=== PATIENT | female | born 1955 | race Caucasian/White ===

== ENCOUNTER 2025-06-09 12:28 | Outpatient (REF) | payer MEDICARE, SELFPAY ==
--- OUTSIDE RECORDS SUMMARY | 2025-06-09 18:10 | XMS_ITS ---
Author Organization [facility] Care Team Providers Care Lead Injection Mold Technician Name Role Phone Juan Daniel Helton Unavailable Unavailable Nila Delgado Unavailable Unavailable Анна Rausch Unavailable Unavailable Allergies and adverse reactions Code CodeSystem Substance Reaction Severity StartDate Concern Status 2670 RXNORM Codeine Nausea (code- 4 20767711, SNOMED CT) Moderate 12/03/2022 active Nitrostat Contact dermati tis (code- 06773434, SNOMED CT) Moderate 12/03/2022 active Care Team Name Role Address Phone Organization Dates Juan Daniel Helton PCP [address] [facility] [address], [place], [address], [place] (Office): : [facility] 12/03/2022 - 12/08/2022 Nila Delgado [address] [facility] [address], [place], [address], [place] (Office): : [facility] 12/03/2022 - 12/08/2022 Анна Rausch [address] [address], [place], [address], [place] (Office): [facility] 12/03/2022 - 12/08/2022 Mental Status Section Date Assessment Total Score Description 12/08/2022 BIMS 15 cognitively int act CAM 0 No delirium ind icated PHQ-9 01 minimal depress ion 12/07/2022 BIMS 15 cognitively int act CAM 0 No delirium ind icated PHQ-9 01 minimal depress ion Insurance Providers Problems Problem # Description Date of onset Resolved Date Code CodeSystem Concern Status 1 ACUTE RESPIRATORY FAILURE WITH HYPOXIA [address] active 2 ANOREXIA NERVOSA, UNSPECIFIED [address] active 3 CHRONIC OBSTRUCTIVE PULMONARY DISEASE WITH (ACUTE) EXACERBATION [address] active 4 OTHER LACK OF COORDINATION [address] active 5 PNEUMONIA, UNSPECIFIED ORGANISM [address] active 6 UNSPECIFIED PROTEIN-CALORIE MALNUTRITION [address] active 7 UNVACCINATED FOR COVID-[address] active Reason for Referral No Reasons for Referral Entered Social History Social History Observation Description Start Date End Date Code Code System Current Smoking Status Tobacco smoking consumption unknown 624866028 SNOMED CT Sex Assigned At Female 1955 29150-1 [facility] Gender Identity Sexual Orientation Vital Signs Code Code System Vitals Name Values and Units Timing Information 79410-9 [facility] O2 % BldC Oximetry Value=92.0 Units= % 12/08/2022 88693-1 LOINC Pain Level Value=0.0 12/08/2022 84071-0 LOINC Weight Value=80.6 Units=Lbs 11/18 9279-1 LOINC Respiratory Rate Value=18.0 Units=/m in 12/07/2022 8462-4 LOINC Blood Pressure-Diastolic Value=57 Un its=mmHg 12/07/2022 8480-6 LOINC Blood Pressure-Systolic Qeeni=839 Un its=mmHg 12/07/2022 8310-5 LOINC Body Temperature Value=97.9 Units= F 12/07/2022 8867-4 LOINC Heart rate Value=96.0 Units=/min 8302-2 LOINC Height Value=65.0 Units=Inches 12/03/2022
--- OUTSIDE RECORDS SUMMARY | 2025-06-09 18:10 | XMS_ITS | Clinical Summary ---
Author Organization [facility] [address] [facility] Address [address] [place] [address] Phone Care Team Providers Care Cadastral Engineer Name Role Phone Atif Desai MD Primary Care Provider Allergies Active Allergy Reactions Criticality Noted Date Comments Codeine Low 02/22/2025 Nitroglycerin 02/22/2025 Medications dicyclomine (BENTYL) 10 mg capsule Take 1 capsule (10 mg total) by mouth 4 (four) times a day if needed (abdominal pain or cramps). 40 capsule 05/25/2025 Active Active Problems Problem Noted Date Diagnosed Date Underweight (BMI < 18.5) 02/22/2025 Tobacco use disorder 02/22/2025 Encounters Date Type Department Care Team Description 05/25/2025 11:00 AM EDT Office Visit Adult Medicine [address] [phone] Atif Desai MD Elevated alkaline phosphatase level (Primary Dx); Underweight (BMI < 18.5); Tobacco use disorder; Need for hepatitis C screening test; Encounter for screening for HIV; Screening for lipid disorders; Encounter for screening for malignant neoplasm of colon; Encounter for osteoporosis screening in asymptomatic postmenopausal patient; Encounter for screening for malignant neoplasm of lung in current smoker with 30 pack year history or greater; Encounter for screening mammogram for breast cancer from Last 3 Months Surgical History Surgery Date Site/Laterality Comments CHEST TUBE INSERTION Medical History Medical History Date Comments Anorexia Pneumothorax Family History Medical History Relation Name Comments ALS Brother Alcohol abuse Father Cirrhosis Father Liver cancer Father Ovarian cancer Mother ALS Sister 2 ALS Sister 3 Relation Name Status Comments Brother Father Mother Sister 1 Sister 2 Sister 3 Social History Tobacco Use Types Packs/Day Years Used Date Smoking Tobacco: Every Day Cigarettes 1 55.8 Started: 1970 Passive Smoke Exposure: Never Smokeless Tobacco: Never Tobacco Cessation:Ready to Q uit: Not Asked; Counseling Given: Not Answered Alcohol Use Standard Drinks/Week Comments Not Currently 0 (1 standard drink = 0.6 oz pur e alcohol) Housing Instability Answer Date Recorde d Are you worried that in the next 2 months you may not have stable housing? No 05/25/2025 Food Access & Nutrition Answer Date Rec orded Do you have access to a vari ety of food including fruits and vegetables? Yes 05/25/2025 Health Literacy Answer Date Recorded How often do you need to hav e someone help you when you read instructions, pamphlets, or other written material from your doctor or pharmacy? Never 05/25/2025 Caregiver: How often do you need to have someone help you when you read instructions, pamphlets, or other written material from your doctor or pharmacy? Not on file 05/25/2025 Financial Risk Answer Date Recorded How hard is it for you to pa y for the very basics like food, housing, medical care, and air conditioning / heating? Not very hard 05/25/2025 Transportation Answer Date Recorded Has the lack of transportati on kept you from meetings, work, or from getting things needed for daily living? Patient declined 05/25/2025 Has the lack of transportati on kept you from medical appointments or from getting medications? Patient declined 05/25/2025 Social Isolation Answer Date Recorded How often do you feel lonely or isolated from th ose around you? Never 05/25/2025 Food Risk Answer Date Recorded Within the past 12 months we worried whether our food would run out before we got money to buy more. Never true 05/25/2025 Within the past 12 months th e food we bought just didn't last and we didn't have money to get more. Never true 05/25/2025 Dependent Care Answer Date Recorded Do you need help finding or paying for care for your loved ones. For example, child care coordinator or elderly care for an older adult? No 05/25/2025 Education Answer Date Recorded Do you think completing more education or training, like finishing a GED, going to college, or learning a trade, would be helpful for you? Patient declined 05/25/2025 Employment and Income Answer Date Recor ded During the last four weeks, have you been actively looking for work? No 05/25/2025 Living Situation Answer Date Recorded What is your living situation? Unrecognized valu e 05/25/2025 Comments No Sex and Gender Information Value Date Recorded Sex Assigned at Not on file Legal Sex Female 9:14 AM EDT Gender Identity Not on file Sexual Orientation Not on file Obstetrics History Last Filed Vital Signs Vital Sign Reading Time Taken Comments Blood Pressure 134/65 05/25/2025 11:17 AM EDT Pulse 105 05/25/2025 11:17 AM EDT Temperature 36.3 C (97.3 F) 05/25/2025 11:17 AM EDT Respiratory Rate 14 05/25/2025 11:17 AM EDT Oxygen Saturation 93% 05/25/2025 11:17 AM EDT Inhaled Oxygen Concentration - - Weight 39.3 kg (86 lb 9.6 oz) 05/25/2025 11:17 A M EDT Height 162.6 cm (5' 4 ) 05/25/2025 11:17 AM EDT Body Mass Index 14.86 05/25/2025 11:17 AM EDT Plan of Treatment Upcoming Encounters Date Type Department Care Team (Late st Contact Info) Description 06/22/2025 2:15 PM EST Clinical Support Lung Screening Program - [place] [address] [facility] [address] [place] [address] 06/22/2025 2:45 PM EST Appointment [facility] CT Scan [address] [place] [phone] 06/24/2025 1:00 PM EST Appointment Radiology Department - [address] [phone] 08/31/2025 11:30 AM EST Office Visit Adult Medicine East - [address] [phone] Atif Desai MD [address] [place] [address] 09/09/2025 11:15 AM EST Appointment Bone Density - [place] [place] [address] Health Maintenance Due Date Last Done Comments Breast Cancer Screening 1955 Colorectal Cancer Screening: Colonoscopy 1955 Cholesterol Screening (Lipid Panel) 02/22/2025 Hepatitis C Screening 02/22/2025 Lung Cancer Screening (Low D ose CT) 02/22/2025 Medicare Annual Wellness Visit 02/22/2025 Osteoporosis Screening (Bone Density Screening) 02/22/2025 Influenza Vaccine (#1) 2026 Postp oned from 04/19/2025 (Patient Refused) Falls Risk Assessment 05/25/2026 05/25/2025 Social Influencers of Health Screening 05/25/2026 05/25/2025 RSV Immunization Adult Patie nts (1 - 1-dose 75+ series) 2028 Depression Screening Completed 05/25/2025 COVID-19 Vaccine Discontinued DTaP,Tdap,and Td Vaccines Discontinued HIB Vaccines Aged Out No longer eligi ble based on patient's age to complete this topic HPV Vaccines Aged Out No longer eligi ble based on patient's age to complete this topic Hepatitis A Vaccines Aged Out No long er eligible based on patient's age to complete this topic Hepatitis B Vaccines Aged Out No long er eligible based on patient's age to complete this topic IPV Vaccines Aged Out No longer eligi ble based on patient's age to complete this topic MMR Vaccines Aged Out No longer eligi ble based on patient's age to complete this topic Meningococcal ACWY Vaccine Aged Out N o longer eligible based on patient's age to complete this topic Meningococcal B Vaccine Aged Out No l onger eligible based on patient's age to complete this topic Pneumococcal Vaccine: 50+ Years Discontinued RSV Immunization Patients Un claudette 20 months Aged Out No longer eligible b ased on patient's age to complete this topic Varicella Vaccines Aged Out No longer eligible based on patient's age to complete this topic Zoster Vaccines Discontinued Additional Health Concerns Infection Onset Date Last Indicated Enteropathogenic E. coli (EPEC) 02/25/2025 02/25/2025 Insurance MEDICARE Care Teams Cadastral Engineer Relationship Specialty Start Date End Date Atif Desai MD [address] [place] [address] PCP - General Internal Medicine 02/22/25
== END 2025-06-09 12:29 | disposition home or self-care (01) ==
LOC: HO.LAB 12:28
PROVIDERS: PCP Internal Medicine
DX: Z13.89 Encounter for screening for other disorder (principal)
CPT/HCPCS: 81003; 87086; 99202

== ENCOUNTER 2025-06-09 12:28 | Outpatient (AMB) | payer MEDICARE, SELFPAY ==
--- NOTE | 2025-06-09 12:35 | MHC.OFFWIV ---
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 Intake Note: Patient presents with severe left sided low back pain & urinary frequency since yesterday Allergies codeine (CODEINE) Allergy (Unknown, Unverified 06/09/25 12:44) UNKNOWN nitroglycerin (NITROGLYCERIN) Allergy (Unknown, Unverified 06/09/25 12:44) TACHYCARDIA Do you need a note to return to daycare/school/sports/work: No HPI HPI Comments History of Present Illness Details History - The patient is a 69-year-old female presenting with symptoms suggestive of a urinary tract infection. - The patient reports experiencing pain and discomfort, primarily in the left lower back region, which she associates with previous urinary tract infections. - She denies experiencing burning during urination, fever, or hematuria, but reports mild abdominal cramping. - The patient has no history of kidney stones. Review of Systems - Genitourinary: Reports lower back pain and mild abdominal cramping. Denies dysuria, fever, and hematuria. All systems reviewed and are unremarkable except as noted in HPI Physical Exam General: Cooperative, healthy appearing, comfortable, no acute distress and well developed Orientation: Patient oriented x3 Limitations: No limitations Head: Normal to inspection Ears: Hearing grossly normal bilaterally Face and sinus: Normal facial exam Neck: Normal visual inspection and Yes full ROM Respiratory: Normal respiratory effort and able to speak in complete sentences. Skin: No rashes or lesions noted Neuro: Patient oriented x3 Back/spine: Positive CVA tenderness on the left side Physical Exam Vital Signs: Last Vital Signs Temp 97.6 F 06/09/25 12:42 Pulse 77 06/09/25 12:42 BP 110/72 06/09/25 12:42 Pulse Ox 97 06/09/25 12:42 Oxygen Delivery Method Room Air 06/09/25 12:42 Results AMB Urinalysis, Automated UA Leukoctes 70 Abbi/uL Last Edit by Veronica Chester CMA on 06/09/25 12:53 UA Nitrite Negative Last Edit by Veronica Chester CMA on 06/09/25 12:53 UA Urobilinogen 1 mg/dL Last Edit by Veronica Chester CMA on 06/09/25 12:53 UA Protein 30 mg/dL Last Edit by Veronica Chester, FLEX on 06/09/25 12:53 UA pH 6.0 Last Edit by Veronica Chester, FLEX on 06/09/25 12:53 UA Blood 200 Bob/uL Last Edit by Veronica Chester, FLEX on 06/09/25 12:53 UA Specific [place] 1.030 Last Edit by Veronica Chester, FLEX on 06/09/25 12:53 UA Ketone Positive Last Edit by Veronica Chester, FLEX on 06/09/25 12:53 UA Bilirubin 0 mg/dL Last Edit by Veronica Chester, FLEX on 06/09/25 12:53 UA Glucose 0 mg/dL Last Edit by Veronica Chester, FLEX on 06/09/25 12:53 Results Reviewed Results Reviewed: Laboratory Last Values Urine pH (Auto) 6.0 06/09/25 12:52 Specific [place] (Auto) 1.030 06/09/25 12:52 Urine Protein (Auto) 30 mg/dL H* 06/09/25 12:52 Glucose (UA)(Auto) 0 mg/dL 06/09/25 12:52 Urine Ketones (Auto) Positive 06/09/25 12:52 Urine Blood (Auto) 200 Bob/uL H* 06/09/25 12:52 Urine Nitrite (Auto) Negative 06/09/25 12:52 Urine Bilirubin (Auto) 0 mg/dL 06/09/25 12:52 Urine Urobilinogen (Auto) 1 mg/dL 06/09/25 12:52 Leukocyte Esterase (Auto) 70 Abbi/uL H* 06/09/25 12:52 Assessment & Plan Assessment & Plan (1) UTI (urinary tract infection): Code(s): N39.0 - Urinary tract infection, site not specified Qualifiers: Urinary tract infection type: acute cystitis Hematuria presence: with hematuria Qualified Code(s): N30.01 - Acute cystitis with hematuria Plan: Plan - UA + leuks, neg nitrites, + blood - Initiate antibiotic therapy for suspected urinary tract infection. - Prescribe phenazopyridine for urinary tract pain relief, to be taken every eight hours as needed, with a maximum of six doses. - Advise the patient to seek emergency evaluation if pain worsens or does not improve with antibiotics, to rule out nephrolithiasis as + CVA. - Will send urine culture. Patient was informed and verbally consented to the use of an ambient scribe for clinic note documentation during this visit. Orders: Orders AMB Urinalysis Automated Today Deborah Reza PA-C Z13.9 - Encounter for screening, unspecified Urine Culture Today Mable Laws PA-C N39.0 - Urinary tract infection, site not specified Medications: New phenazopyridine 200 mg (2 x 100 mg) PO Q8H PRN 6 tabs 0RF Pain Mable Laws PA-C cefuroxime axetil 500 mg PO Q12H 10 tabs 0RF Mable Laws PA-C Coding Level of Care Code New Pt Level 3 (60690) Diagnoses Acute cystitis with hematuria N30.01 Urinary tract infection type: acute cystitis Hematuria presence: with hematuria
[2025-06-09 12:42] VITALS: BP 110/72; PULSE 77; TEMP 36.4; O2SAT 97
== END 2025-06-09 13:34 | disposition home or self-care (01) ==
PROVIDERS: PCP Internal Medicine; Visit Provider Physician Assistant
DX: Z13.9 Encounter for screening, unspecified (principal); N30.01 Acute cystitis with hematuria

== ENCOUNTER 2025-06-09 16:28 | Emergency (ER) | payer MEDICARE, SELFPAY ==
--- NOTE | 2025-06-09 | ECG_ITS ---
Test Reason : NEW ONSET AFIB Blood Pressure : */* mmHG Vent. Rate : 85 BPM Atrial Rate : 85 BPM P-R Int : 176 ms QRS Dur : 78 ms QT Int : 388 ms P-R-T Axes : 85 98 73 degrees QTcB Int : 461 ms Sinus rhythm with Premature supraventricular complexes Rightward axis Anterior infarct (cited on or before 15-Mar-2016) Abnormal ECG When compared with ECG of 15-Mar-2016 11:24, Premature supraventricular complexes are now Present Questionable change in initial forces of Lateral leads Referred By: Generic ED Physician Electronically Signed By: WEST HERNANDES MD
--- NOTE | ~2025-06-09 | CT_ITS ---
CLINICAL HISTORY: PAIN CT ABDOMEN AND PELVIS WITHOUT CONTRAST Comparison: None provided Findings: No basilar consolidation or pleural effusion. Tiny pericardial effusion. Mild left hydronephrosis secondary to a 3 mm calculus in the proximal left ureter, L4 level. 2 mm nonobstructing calculus in the left kidney. 3 mm nonobstructing calculus in the right kidney. Surface nodularity in the liver can be seen with cirrhotic morphology. Normal spleen size. Dystrophic calcifications in or adjacent to the head of the pancreas could be related to chronic pancreatitis. No peripancreatic edema or fluid collection. Mildly thickened adrenal glands can be seen with hyperplasia. 1.6 cm gallstone. Dense aortic and arterial calcifications. No AAA. No bowel obstruction, pneumoperitoneum, or pneumatosis. The appendix is identified. No acute appendicitis. Atrophic uterus. No significant urinary bladder wall thickening or perivesical edema. [id number] L4 compression deformity. Prominent superior endplate Schmorl's node in L1. IMPRESSION: 1. Mild left hydronephrosis secondary to a 3 mm calculus in the proximal left ureter. 2. Nonobstructing bilateral nephrolithiasis. 3. Cholelithiasis. 4. No obstructive or acute inflammatory changes in the gastrointestinal tract. 5. Age-indeterminate L4 compression fracture. This document has been electronically signed by: Debra Mccann DO on 06/09/2025 18:50:45
[2025-06-09 16:48] VITALS: BP 108/53; BP 120/44; PULSE 150; PULSE 94; RESP 22; TEMP 36.6; O2SAT 94; O2SAT 95; BMI 15.4
--- NOTE | 2025-06-09 17:14 | ED.GENADULT ---
HPI - General Adult General Chief complaint: Abdominal Pain Stated complaint: UTI Time Seen by Provider: 06/09/25 17:11 Source: patient, RN notes reviewed and old records reviewed Mode of arrival: EMS Limitations: no limitations History of Present Illness ED Provider: Savanna SAUCEDA narrative: 69-year-old female who denies any known past medical history presents for evaluation of left flank pain. She has had left flank pain starting this morning the pain radiates around to her left lower abdomen She went to a walk-in clinic and was told that she has a UTI and was given Pyridium and cefuroxime. She took 1 dose of each and her pain worsened so she presented to the ER. Per EMS, her heart rate was in the 140s to 150s and irregular. The patient reports that she has had an irregular heartbeat her entire life but has never been diagnosed with AFib she did get a new primary doctor last week the patient denies any chest pain, shortness of breath, palpitations per nursing notes, apparently the patient was given Cardizem 20 mg IV during EMS transport Related Data Previous Rx's ?Medication ?Instructions ?Recorded cefuroxime axetil 500 mg tablet 500 mg PO Q12H #10 tabs 06/09/25 oxycodone 5 mg tablet 2.5 mg (1/2 x 5 mg) PO Q8H PRN 06/09/25 pain (scale score 7-10) #5 tabs phenazopyridine 100 mg tablet 200 mg (2 x 100 mg) PO Q8H PRN 06/09/25 Pain #6 tabs tamsulosin 0.4 mg capsule 0.4 mg PO DAILY #7 caps 06/09/25 Allergies Allergy/AdvReac Type Severity Reaction Status Date / Time codeine (CODEINE) Allergy Unknown UNKNOWN Unverified 06/09/25 16:56 nitroglycerin (NITROGLYCERIN) Allergy Unknown TACHYCARDIA Unverified 06/09/25 16:56 Review of Systems Constitutional: Constitutional: Denies body ache(s), Denies chills and Denies fever(s) ENT: Denies vertigo and Denies dizziness Cardiovascular: Cardiovascular: Denies chest pain, Denies dyspnea and Denies dyspnea on exertion Respiratory: Respiratory: Denies cough, Denies dyspnea and Denies dyspnea on exertion Gastrointestinal: Gastrointestinal: Reports abdominal pain, Denies nausea and Denies vomiting Musculoskeletal: Musculoskeletal: Reports back pain Integumentary/Breasts: Skin/Breast: Denies rash Neurologic: Denies vertigo and Denies dizziness PMFSH Social History Social History Advance Directives: No Advance Directives Information Provided: Yes Do you have a plan to hurt others: No Plan Physical Exam ED Vital Signs: Vital Signs - 24 hr 06/09/25 16:48 06/09/25 18:08 06/09/25 19:25 Temperature 97.8 F 98.0 F Pulse Rate 94 88 78 Respiratory Rate 22 H 21 H 20 Blood Pressure 120/44 L 105/51 L 112/50 L Pulse Oximetry 95 95 94 Oxygen Delivery Method Room Air Room Air Room Air BMI result Body Mass Index 15.4 Const General: healthy appearing, comfortable, no acute distress, alert and awake Nutritional Appearance: well nourished Orientation/consciousness: patient oriented x3 HENMT Head: Yes normocephalic and Yes atraumatic Eyes Eyelids: Yes eyelids normal Conjunctivae: conjunctivae normal Sclerae: sclerae normal Corneas: corneas normal Pupils: Equal, round and reactive pupils present EOM: EOMs intact bilaterally Neck Neck: Yes full ROM Resp Effort & Inspection: normal respiratory effort, able to speak in complete sentences and not labored Cardio Rhythm: regular rhythm GI Other: positive CVA tenderness on the left Inspection: No distended Palpation (GI): Soft to palpation, not firm, Tenderness to palpation present (GI) in the LLQ, no guarding and not rigid Back/Spine/Pelvis Other: there is some tenderness to light palpation of the left thoracic and lumbar paraspinous region. No vertebral tenderness. Skin General skin exam: elasticity normal Neuro General: patient oriented x3 Cranial nerves: Yes Equal, round and reactive pupils present and Yes Bilaterally intact EOM present Cognition (Neuro): normal cognition Extrem Other: Moving all extremities well without any obvious deformities Course Reevaluation(s) Reevaluation #1: patient re-evaluated, she reports that her pain is a 1/10. Her CT scan does show a 3 millimeter obstructing calculus. I discussed this with her. We will discharge the patient with symptomatic care. We will give her tamsulosin to help facilitate passing of the stone. I did agree to give her a very short course of oxycodone for breakthrough pain. Return precautions were given specifically severe pain, inability to tolerate p.o., or fevers Time: 21:24 Medical Decision Making Medical Decision Making [facility] Narrative: 69-year-old female presents for evaluation of left flank pain. Her symptoms started this morning and became severe. She was given a dose of antibiotic and Pyridium just prior to arrival. She has a sinus arrhythmia on your ekg. she denies any chest pain, palpitations, her heart rate during my evaluation is 80s to about 100. She would have left lower abdominal tenderness and left flank pain positive CVA tenderness on exam. We will get a CT scan of the abdomen pelvis without contrast to evaluate for obstructive uropathy. Plan for labs to evaluate renal function and evaluate for a leukocytosis. We will also get a repeat urinalysis for culturing Differential Diagnosis Differential Diagnoses: The differential diagnosis associated with the presentation includes obstructive uropathy UTI Pyelonephritis AFib SVT AFib Lab Data [facility] Lab Attestation statement: I reviewed the patient's lab results. no leukocytosis or significant anemia. Electrolytes within normal limits, renal function with normal limits 06/09/25 18:06 06/09/25 18:06 Labs: Lab Results 06/09/25 06/09/25 Range/Units 18:06 20:02 WBC 7.3 (4.8-10.8) X10*3/uL RBC 4.50 (4.20-5.50) X10*6/uL Hgb 14.1 (12.0-16.0) g/dl Hct 41.9 (37.0-47.0) % MCV 93.1 (80.0-98.0) fL MCH 31.3 (27.0-33.0) pg MCHC 33.7 (31.0-35.0) g/dl RDW 13.2 (11.0-16.0) % Plt Count 130 L (160-400) X10*3/uL MPV 10.8 (9.4-12.3) fL Immature Gran % (Auto) 0.4 (0.0-0.4) % Neut % (Auto) 85.0 H (45-73) % Lymph % (Auto) 8.6 L (20-40) % [place] % (Auto) 5.5 (2-11) % Eos % (Auto) 0.1 (0-4) % Baso % (Auto) 0.4 (0-2) % Lymph # (Auto) 0.6 L (1.2-4.9) X10*3/uL [place] # (Auto) 0.4 (0.1-1.2) X10*3/uL Eos # (Auto) 0.0 (0.0-0.4) X10*3/uL Baso # (Auto) 0.0 (0.0-0.2) X10*3/uL Abs Immat Gran (auto) 0.03 (0.00-0.03) X10*3/uL Absolute Neuts (auto) 6.2 (2.0-8.3) x10*3/uL Absolute Nucleated RBC 0.000 (0.0-0.012) X10*3/uL Nucleated RBC % (auto) 0.0 (0.0-0.2) /100WBC Sodium 144 (135-145) mmol/L Potassium 3.7 (3.3-5.1) mmol/L Chloride 108 (96-108) mmol/L Carbon Dioxide 24 (22-29) mmol/L Anion Gap 16 (12-20) BUN 15 (9-16) mg/dL Creatinine 0.77 (0.5-1.4) mg/dL Estim Creat Clear Calc 43.1 Estimated GFR > 60 Random Glucose 140 H (60-115) mg/dL Calcium 9.4 (8.4-10.2) mg/dL Urine Color [place] A Urine Appearance Clear Urine pH 5.5 (5.0-9.0) Ur Specific [place] 1.010 (1.005-1.025) Urine Protein Trace (Neg-Trace) mg/dL Urine Glucose (UA) Negative (Negative) mg/dL Urine Ketones Negative (Negative) mg/dL Urine Blood Moderate (2+) H (Negative) Urine Nitrite Positive H (Negative) Ur Leukocyte Esterase Small (1+) H (Negative) Urine RBC 6-10 H (0-2) /HPF Urine WBC 0-5 (0-5) /HPF Ur Squamous Epith Cells 3-5 (0-2) /HPF Calcium Oxalate Crystal Present Urine Bacteria None Seen (None Seen) Hyaline Casts 0-2 (0-2) /LPF Independent Interpretation I performed an independent interpretation of an: CT Scan Interpretation: agree with Radiology interpretation Radiology Impression Discussion of test interpretation with radiology: I have reviewed the radiologist's reading. Radiologist Impression: Findings: No basilar consolidation or pleural effusion. Tiny pericardial effusion. Mild left hydronephrosis secondary to a 3 mm calculus in the proximal left ureter, L4 level. 2 mm nonobstructing calculus in the left kidney. 3 mm nonobstructing calculus in the right kidney. Surface nodularity in the liver can be seen with cirrhotic morphology. Normal spleen size. Dystrophic calcifications in or adjacent to the head of the pancreas could be related to chronic pancreatitis. No peripancreatic edema or fluid collection. Mildly thickened adrenal glands can be seen with hyperplasia. 1.6 cm gallstone. Dense aortic and arterial calcifications. No AAA. No bowel obstruction, pneumoperitoneum, or pneumatosis. The appendix is identified. No acute appendicitis. Atrophic uterus. No significant urinary bladder wall thickening or perivesical edema. Wbfl-[id number] L4 compression deformity. Prominent superior endplate Schmorl's node in L1. IMPRESSION: 1. Mild left hydronephrosis secondary to a 3 mm calculus in the proximal left ureter. 2. Nonobstructing bilateral nephrolithiasis. 3. Cholelithiasis. 4. No obstructive or acute inflammatory changes in the gastrointestinal tract. 5. Age-indeterminate L4 compression fracture. This document has been electronically signed by: Debra Mccann DO on 06/09/2025 18:50:45 Discharge Plan Discharge Clinical Impression: Obstructive uropathy Patient Disposition: Home, Self-Care Instructions: Kidney Stones (ED) Additional Instructions: your CT scan showed a 3 millimeter kidney stone in the left side which is contributing to your pain. Your EKG did show an irregular rhythm but it was not atrial fibrillation. Take Flomax daily for the next week or until your pain is completely gone. You may continue your antibiotic. Use ibuprofen or Tylenol for pain. You may use oxycodone for severe, breakthrough pain this may make you drowsy, do not drink alcohol or drive after taking it Prescriptions: New oxycodone 5 mg tablet 2.5 mg PO Q8H PRN (Reason: pain (scale score 7-10)) Qty: 5 0RF Rx Instructions: Partial Fill upon patient request. tamsulosin 0.4 mg capsule 0.4 mg PO DAILY Qty: 7 0RF No Action cefuroxime axetil 500 mg tablet 500 mg PO Q12H Qty: 10 0RF phenazopyridine 100 mg tablet 200 mg PO Q8H PRN (Reason: Pain) Qty: 6 0RF Print Language: Setswana
--- NOTE | 2025-06-09 17:50 | MHC.EDTECH ---
Delayed draw due to Pt in CT.
[2025-06-09 18:08] VITALS: BP 105/51; PULSE 88; RESP 21; O2SAT 95
[2025-06-09 18:10] LABS: MANUAL DIFF FLAG NO
[2025-06-09 18:23] LABS: Anion Gap 16 (12-20); Blood Urea Nitrogen 15 mg/dL (9-16); Calcium 9.4 mg/dL (8.4-10.2); Carbon Dioxide 24 mmol/L (22-29); Chloride 108 mmol/L (96-108); Creatinine Clr Calc Pharmacy 43.1; Estimated Glomerular Filt Rate > 60; Potassium 3.7 mmol/L (3.3-5.1); Sodium 144 mmol/L (135-145)
[2025-06-09 19:25] VITALS: BP 112/50; PULSE 78; RESP 20; TEMP 36.7; O2SAT 94
[2025-06-09 19:36] LABS: Hematocrit 41.9 % (37.0-47.0); Hemoglobin 14.1 g/dl (12.0-16.0); Imm Gran Abs Auto 0.03 X10*3/uL (0.00-0.03); Imm Gran Pct Auto 0.4 % (0.0-0.4); Lymphocytes Absolute Auto 0.6 X10*3/uL (1.2-4.9); Mean Corpuscular HGB Conc 33.7 g/dl (31.0-35.0); Mean Corpuscular Hemoglobin 31.3 pg (27.0-33.0); Mean Corpuscular Volume 93.1 fL (80.0-98.0); NRBC Abs Auto 0.000 X10*3/uL (0.0-0.012); NRBC Pct Auto 0.0 /100WBC (0.0-0.2); Platelet Count 130 X10*3/uL (160-400); Red Blood Count 4.50 X10*6/uL (4.20-5.50); White Blood Count 7.3 X10*3/uL (4.8-10.8)
--- NOTE | 2025-06-09 20:06 | PC.NURSE ---
pt ambulatory to bathroom with steady gait, urine sample obtained and sent to lab
[2025-06-09 20:10] LABS: Appearance Urine Clear; Glucose Urine UA Negative (Negative); PH 5.5 (5.0-9.0); Specific Gravity - Urine 1.010 (1.005-1.025); UMIC TRIGGER UACC YES
[2025-06-09 20:16] LABS: UACC Culture Trigger YES
[2025-06-09 21:39] VITALS: BP 106/56; PULSE 82; RESP 16; TEMP 36.6; O2SAT 95
[2025-06-09 21:41] VITALS: BP 106/56; PULSE 82; RESP 16; TEMP 36.6; O2SAT 95
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
== END 2025-06-09 22:03 | disposition home or self-care (01) ==
PROVIDERS: Physician Assistant; Emergency Provider Student in an Organized Health Care Education/Training Program; PCP Internal Medicine
DX: N13.9 Obstructive and reflux uropathy, unspecified (principal); N39.0 Urinary tract infection, site not specified; R10.A2 Flank pain, left side; I49.8 Other specified cardiac arrhythmias; R10.814 Left lower quadrant abdominal tenderness
CPT/HCPCS: 36415; 74176; 80048; 81001; 85025; 87086; 93005; 99284

== ENCOUNTER → 2025-06-09 16:50 | Outpatient (BNV) | payer MEDICARE, SELFPAY | PROVIDERS: Emergency Provider Student in an Organized Health Care Education/Training Program; PCP Internal Medicine; Visit Provider Internal Medicine Cardiovascular Disease | DX: I49.3 Ventricular premature depolarization (principal); I25.2 Old myocardial infarction | CPT/HCPCS: 93010 ==

== ENCOUNTER → 2025-06-09 17:41 | Outpatient (BNV) | payer MEDICARE, SELFPAY | PROVIDERS: Emergency Provider Student in an Organized Health Care Education/Training Program; PCP Internal Medicine; Visit Provider Radiology Diagnostic Radiology | DX: N13.2 Hydronephrosis with renal and ureteral calculous obstruction (principal); K80.20 Calculus of gallbladder without cholecystitis without obstruction | CPT/HCPCS: 74176 ==

== ENCOUNTER 2025-06-11 07:13 | Inpatient (IN) | payer MEDICARE, SELFPAY ==
[2025-06-11] VITALS (11 sets, daily range): BP systolic 95–128; BP diastolic 40–74; PULSE 99–130; RESP 16–21; TEMP 36.2–36.8; O2SAT 85–99; BMI 14.9; BMI 16.1
--- NOTE | 2025-06-11 | ECG_ITS ---
Test Reason : ?afib Blood Pressure : */* mmHG Vent. Rate : 114 BPM Atrial Rate : 114 BPM P-R Int : 168 ms QRS Dur : 78 ms QT Int : 326 ms P-R-T Axes : 81 98 66 degrees QTcB Int : 449 ms Sinus tachycardia with Premature supraventricular complexes Rightward axis Borderline ECG When compared with ECG of 11-Jun-2025 08:24, Premature supraventricular complexes are now Present Nonspecific T wave abnormality now evident in Inferior leads Referred By: Nico Jj Electronically Signed By: WEST HERNANDES MD
--- NOTE | ~2025-06-11 | FL_ITS ---
EXAMINATION: FL GUIDANCE ONLY HISTORY: left stone COMPARISON: Correlation is made with a CT of the abdomen and pelvis without contrast dated 06/09/2025. TECHNIQUE: Fluoroscopy time: 19.5 seconds. Cumulative Dose: 2.7335 mGy. DAP: 1.1890 Gycm2 Images: 8. FINDINGS: Fluoroscopic spot films of the left abdomen demonstrate injection of the left ureter which is normal in caliber. A filling defect is seen at the UPJ consistent with the calculus noted on CT. The final images demonstrate placement of a nephroureteral stent. FL/FL guidance in OR IMPRESSION: Fluoroscopy during procedure. Please see procedure report for additional information. Electronically signed by: Trenton Valle MD 06/15/2025 07:07 AM EDT
--- NOTE | ~2025-06-11 | CT_ITS ---
EXAMINATION: CT CHEST WITHOUT CONTRAST CLINICAL INFORMATION: Hypoxia, abnormal x-ray COMPARISON: Same-day x-ray TECHNIQUE: Multidetector volumetric CT imaging of the chest was done. Axial MIP volume rendering provided. Sagittal and coronal reformatted images were obtained. This CT examination was performed using dose optimization techniques as appropriate, variously including the following: *Automated exposure control *Adjustment of mA and/or kV according to patient size (this includes techniques or standardized protocols for targeted exams where dose is matched to indication/reason for exam; i.e. extremities or head) *Use of iterative reconstruction technique FINDINGS: LUNGS: There is moderate to severe centrilobular and paraseptal emphysema, most advanced in the lung apexes. Focal linear and triangular density in the inferior lingula is likely atelectasis and/or scarring. There is groundglass and reticular density in the posterior segment left lower lobe at the base likely representing dependent atelectasis. MEDIASTINUM: The mediastinum is normal. CORONARY ARTERY CALCIFICATION: Present PLEURA: There is a right apical density projecting into the adipose tissues cephalad to the lung that measures 4.6 x 1.8 x 3.3 cm (transverse by CC by AP). It measures between 12-20 Hounsfield units. There is focal calcification along the anteromedial margin. It demonstrates a spiculated and angular margins at the interface with the right lung apex. Small layering pleural effusions are present bilaterally. There is focal thickening of along the superior right major fissure. AXILLA: No lymphadenopathy. UPPER ABDOMEN: There is a calcific stone in the gallbladder. There is a 2 mm stone in the mid left kidney. OSSEOUS STRUCTURES: There is diffuse osteopenia with compression fractures involving inferior T11, T12 and L1. CT/CT chest wo IV con IMPRESSION: There is an irregular area of pleural thickening in the right apex measuring up to 1.8 cm thick. It demonstrates heterogeneous low density with spiculated margins. While this could represent loculated fluid or benign pleural thickening, a more aggressive etiology is not excluded given the overall thickness, invagination into apical fat, and spiculations in the adjacent lung. Moderate emphysema. Small layering bilateral pleural effusions. Cholelithiasis. Nephrolithiasis: There is a 2 mm nonobstructing stone in the left kidney. Osteopenia with age-indeterminate compression fractures at the thoracolumbar junction. Fleischner guidelines were followed. Electronically signed by: Memo Eid MD 06/11/2025 12:36 PM EDT RP
--- NOTE | ~2025-06-11 | XR_ITS ---
EXAMINATION: XR CHEST CLINICAL INFORMATION: hypoxia COMPARISON: None available. TECHNIQUE: Frontal view of the chest was obtained. FINDINGS: Devices/Tubes/Lines: Multiple EKG leads overlie the patient Lungs: Hyperinflated lungs. No focal consolidation. Pleura: Opacification over the right lung apex and obliteration of the right costophrenic angle could represent loculated pleural effusion and/or pleural thickening. No pneumothorax. Heart/Mediastinum: Cardiomediastinal silhouette is within normal limits. Bones: Chronic appearing compression fracture deformity of the lower thoracic vertebral body, most likely T11. XR/XR chest 1V IMPRESSION: 1. Opacification over the right lung apex and obliteration of the right costophrenic angle could represent loculated pleural effusion and/or pleural thickening. 2. No consolidations in the remainder lungs. Electronically signed by: Abby Borden MD 06/11/2025 11:38 AM EDT
--- NOTE | ~2025-06-11 | CT_ITS ---
EXAMINATION: CT ABDOMEN PELVIS WITHOUT IV CONTRAST HISTORY: known UTI/stone L ureter now with sepsis/pain COMPARISON: Radius CT of the abdomen and pelvis most recent June 09, 2025 TECHNIQUE: CT scan of the abdomen and pelvis was performed without contrast using standard departmental protocol. Coronal and sagittal reformatted images were generated and reviewed. This CT exam was performed with one or more of the following dose reduction techniques: automated exposure control, adjustment of the mA and/or kV according to patient size, use of iterative reconstruction technique. DLP: 235 mGy-cm FINDINGS: LOWER CHEST: The visualized lung bases are clear. There is no pleural effusion. CARDIOVASCULATURE: The heart is normal in size. There is no pericardial effusion. LIVER: There are cirrhotic changes of the liver. No focal lesion. GALLBLADDER / BILE DUCTS: Gallstone measuring up to 1.8 cm. Gallbladder otherwise normal. No biliary duct dilatation. SPLEEN: The spleen is normal in size and has an unremarkable unenhanced appearance. PANCREAS: Calcifications in the head of the pancreas probably from chronic pancreatitis. Pancreas otherwise unremarkable. ADRENAL GLANDS: Left adrenal gland thickening unchanged. No nodule. Normal right adrenal gland. KIDNEYS/RETROPERITONEUM: 4 mm stone in the central right kidney probably representing a stone in the right renal pelvis. No right hydronephrosis. Mild left hydronephrosis and proximal ureteral dilatation from a 3 mm left proximal ureteral stone. This does not appear appreciably changed from recent exam. Small 2 mm stone in the mid left kidney.. LYMPH NODES: No retroperitoneal lymphadenopathy is identified in the abdomen or pelvis. VASCULATURE: Atherosclerotic disease. No aneurysm. Varices. Likely a recanalized paraumbilical vein. This appears partially calcified. MESENTERY/PERITONEUM: No free fluid. No masses. There is no free intraperitoneal gas. STOMACH: Underdistended and not well evaluated. SMALL BOWEL: The small bowel is normal in caliber. COLON: The colon is unremarkable. APPENDIX: Normal. URINARY BLADDER/PELVIC ORGANS: The urinary bladder is unremarkable. Uterus and adnexa are unremarkable. No pelvic mass. BONES / SOFT TISSUES: 2 x 4 cm partially low attenuation subcutaneous lesion in the right inferior buttock probably representing a sebaceous cyst or epidermoid. There is inferior soft tissue calcification. This appears unchanged. Osteopenia. Loss of height of multiple vertebral bodies, the L4 L3 L1 and L2 vertebral bodies questionable for mild compression fractures versus Schmorl's nodes. This appears unchanged. 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 CT/CT abdomen pelvis wo IV con IMPRESSION: Mild left hydronephrosis and proximal ureteral dilatation from a 3 mm left ureteral stone. This does not appear appreciably changed from June 09, 2025 exam. Small left renal stone. 4 mm central right renal stone probably in the right renal pelvis. No right hydronephrosis. Other stable findings of cirrhosis, varices, gallstone and changes from chronic pancreatitis. Electronically signed by: Demi Dean MD 06/11/2025 09:08 AM EDT
--- NOTE | 2025-06-11 07:31 | PC.NURSE ---
69 F here for kidney stone pain L abdomen, was seen here 2 days ago, pain now 10/10 and nausea since yesterday. Pt is A+OX4, anxious, cooperative. RR even and unlabored, denies CP or SOB.
[2025-06-11 07:49] LABS: MANUAL DIFF FLAG NO
--- NOTE | 2025-06-11 07:52 | ECG_ITS ---
Test Reason : check qtc Blood Pressure : */* mmHG Vent. Rate : 97 BPM Atrial Rate : 97 BPM P-R Int : 184 ms QRS Dur : 74 ms QT Int : 364 ms P-R-T Axes : 88 95 68 degrees QTcB Int : 462 ms Normal sinus rhythm with sinus arrhythmia Right atrial enlargement Rightward axis Anterior infarct (cited on or before 15-Mar-2016) Abnormal ECG When compared with ECG of 09-Jun-2025 16:50, Premature supraventricular complexes are no longer Present Referred By: Shyla Comer Electronically Signed By: WEST HERNANDES MD
[2025-06-11] MEDS: LACTATED RINGERS 1179 ML IV (07:58)
[2025-06-11 07:59] LABS: Hematocrit 39.4 % (37.0-47.0); Hemoglobin 13.1 g/dl (12.0-16.0); Imm Gran Abs Auto 0.05 X10*3/uL (0.00-0.03); Imm Gran Pct Auto 0.6 % (0.0-0.4); Lymphocytes Absolute Auto 0.7 X10*3/uL (1.2-4.9); Mean Corpuscular HGB Conc 33.2 g/dl (31.0-35.0); Mean Corpuscular Hemoglobin 31.0 pg (27.0-33.0); Mean Corpuscular Volume 93.1 fL (80.0-98.0); NRBC Abs Auto 0.000 X10*3/uL (0.0-0.012); NRBC Pct Auto 0.0 /100WBC (0.0-0.2); Platelet Count 118 X10*3/uL (160-400); Red Blood Count 4.23 X10*6/uL (4.20-5.50); White Blood Count 8.0 X10*3/uL (4.8-10.8)
--- OUTSIDE RECORDS SUMMARY | 2025-06-11 08:04 | XMS_ITS ---
Author Organization [facility] Care Team Providers Care Costume Design Teacher Name Role Phone Juan Daniel Helton Unavailable Unavailable Nila Delgado Unavailable Unavailable Анна Rausch Unavailable Unavailable Allergies and adverse reactions Code CodeSystem Substance Reaction Severity StartDate Concern Status 2670 RXNORM Codeine Nausea (code- 4 39953712, SNOMED CT) Moderate 12/03/2022 active Nitrostat Contact dermati tis (code- 00298741, SNOMED CT) Moderate 12/03/2022 active Care Team Name Role Address Phone Organization Dates Juan Daniel Helton PCP [address] [facility] [address], [place], [address], [place] (Office): : [facility] 12/03/2022 - 12/08/2022 Nila Delgado [address] [facility] [address], [place], [address], [place]Office): : [facility] 12/03/2022 - 12/08/2022 Анна Rausch [address] [facility] [address], [place], [address], [place] (Office): [facility] 12/03/2022 - 12/08/2022 Mental Status Section Date [...] 1 ACUTE RESPIRATORY FAILURE WITH HYPOXIA [address] active 2 ANOREXIA NERVOSA, UNSPECIFIED [address] active 3 CHRONIC OBSTRUCTIVE PULMONARY DISEASE WITH (ACUTE) EXACERBATION [address] active 4 OTHER LACK OF COORDINATION [address] active 5 PNEUMONIA, UNSPECIFIED ORGANISM [address] active 6 UNSPECIFIED PROTEIN-CALORIE MALNUTRITION [address] active 7 UNVACCINATED FOR COVID-[address] active Reason for Referral No Reasons for Referral Entered Social History Social History Observation Description Start Date End Date Code Code System Current Smoking Status Tobacco smoking consumption unknown 603917649 SNOMED CT Sex Assigned At Female 1955 34862-7 [facility] Gender Identity Sexual Orientation Vital Signs Code Code System Vitals Name Values and Units Timing Information 06726-0 [facility] O2 % BldC Oximetry Value=92.0 Units= % 12/08/2022 14595-6 LOINC Pain Level Value=0.0 12/08/2022 00862-0 LOINC Weight Value=80.6 Units=Lbs 11/18 9279-1 LOINC Respiratory Rate Value=18.0 Units=/m in 12/07/2022 8462-4 LOINC Blood Pressure-Diastolic Value=57 Un its=mmHg 12/07/2022 8480-6 LOINC Blood Pressure-Systolic Eydim=954 Un its=mmHg 12/07/2022 8310-5 LOINC Body Temperature Value=97.9 Units= F 12/07/2022 8867-4 LOINC Heart rate Value=96.0 Units=/min 8302-2 LOINC Height Value=65.0 Units=Inches 12/03/2022
--- OUTSIDE RECORDS SUMMARY | 2025-06-11 08:04 | XMS_ITS | Clinical Summary ---
Author Organization [facility] [address] [facility] Address [address] [place] [address] Phone Care Team Providers Care Personal Injury Law Specialist Name Role Phone Atif Desai MD Primary [...] 11:00 AM EDT Office Visit Adult Medicine [address] [phone] Atif Desai MD Elevated alkaline phosphatase level [...] for your loved ones. For example, child monitor or elderly care for an older adult? [...] EST Clinical Support Lung Screening Program - [place] [address] [facility] [address] [place] [address] 06/22/2025 2:45 PM EST Appointment [facility] CT Scan [address] [place] [phone] 06/24/2025 1:00 PM EST Appointment Radiology Department - [address] [phone] 08/31/2025 11:30 AM EST Office Visit Adult Medicine East - [address] [phone] Atif Desai MD [address] [place] [address] 09/09/2025 11:15 AM EST Appointment Bone Density - [place] [address] [place] [address] Health Maintenance Due Date Last Done Comments [...] (EPEC) 02/25/2025 02/25/2025 Insurance MEDICARE Care Teams Personal Injury Law Specialist Relationship Specialty Start Date End Date Atif Desai MD [address] [place] [address] PCP - General Internal Medicine 02/22/25
[2025-06-11 08:15] LABS: Alanine Aminotransferase < 6 U/L (0-31); Albumin Level 4.0 g/dL (3.5-5.0); Alkaline Phosphatase 115 U/L (39-117); Anion Gap 16 (12-20); Aspartate Amino Transferase 27 U/L (5-31); Blood Urea Nitrogen 20 mg/dL (9-16); Calcium 9.4 mg/dL (8.4-10.2); Carbon Dioxide 21 mmol/L (22-29); Chloride 107 mmol/L (96-108); Creatinine Clr Calc Pharmacy 27.5; Estimated Glomerular Filt Rate 46; Magnesium 1.7 mg/dL (1.6-2.6); Potassium 4.3 mmol/L (3.3-5.1); Sodium 140 mmol/L (135-145); Total Protein 6.4 g/dL (6.5-8.0)
--- NOTE | 2025-06-11 08:30 | ED_ITS ---
HPI - Abdominal Pain General Chief Complaint: Abdominal Pain Stated Complaint: KIDNEY STONE, PAIN LT SIDE Time Seen by Provider: 06/11/25 07:29 Source: patient, EMS and old records reviewed Mode of arrival: EMS Limitations: no limitations History of Present Illness ED Provider: MEGHAN HPI narrative: 69 yo female with PMH of smoker, UTI - just put on pyridium and ceftin by on Saturday or Saturday - she was seen here on 06/09 for L flank pain dx with 3mm prox ureter stone - DC on flomax and oxycodone. She comes in today with c/o worsening L sided abdominal pain, n/v, chills. She states she cannot get comfortable. She did take her medications. She has not had a fever but she has chills. MD elicited complaint: flank pain Pertinent past history: kidney stones Onset (ago): day(s) (3) Pain Consistency: constant Location: L flank Severity: severe Quality: stabbing Radiation: LLQ and L flank Migration to: LLQ Exacerbating factors: vomiting Relieving factors: nothing Context: recent antibiotic use and history of similar episodes Associated symptoms: nausea, vomiting and chills Related Data Previous Rx's ?Medication ?Instructions ?Recorded cefuroxime axetil 500 mg tablet 500 mg PO Q12H #10 tab s 06/09/25 oxycodone 5 mg tablet 2.5 mg (1/2 x 5 mg) PO Q8H P RN 06/09/25 pain (scale score 7-10) #5 tabs phenazopyridine 100 mg tablet 200 mg (2 x 100 mg) PO Q 8H PRN 06/09/25 Pain #6 tabs tamsulosin 0.4 mg capsule 0.4 mg PO DAILY #7 caps 05/20 10/13 Allergies Allergy/AdvReac Type Severity Reaction Status Date / Time codeine (CODEINE) Allergy Unknown UNKNOWN Verified 06/11/25 07:27 nitroglycerin (NITROGLYCERIN) Allergy Unknown TACHYCARDIA Verified 06/11/25 07:27 Review of Systems Review of Systems Constitutional : No Fever, pos Chills ENT/Mouth : No sore throat Eyes: No Eye Pain, No Swelling, No Redness Cardiovascular : No Chest Pain, No SOB Respiratory : No Cough, No Sputum, No Wheezing Gastrointestinal : positive Nausea, positive Vomiting, No Diarrhea, positive abdominal pain Genitourinary : positive Dysuria, , positive Flank Pain Musculoskeletal : No joint pain, No Myalgias Skin : No Skin Lesions, No rash Neuro : No Weakness, No Numbness, No Headache All other systems reviewed and are negative [facility] Past Medical History Attestation statement: The following information was validated with the patient. Source: old records reviewed Medical History Kidney stones UTI (urinary tract infection) Social History Social History (Updated 06/11/25 @ 08:38 by Shyla Comer DO) Patient Tobacco Use Status: Current everyday Tobacco user Smoked in Last 30 Days: Yes Use of substances other than those prescribed or required for medical reasons: No Advance Directives: Yes Advance Directives Information Provided: Yes Advance Directives on File: No Do you have a plan to hurt others: No Plan Physical Exam ED Vital Signs: Vital Signs - 24 hr 06/11/25 07:25 06/11/25 07:30 06/11/25 08:47 Temperature 98.3 F 98.3 F Pulse Rate 107 H 107 H 102 H Respiratory Rate 18 18 16 Blood Pressure 95/40 L 95/40 L 116/43 L Pulse Oximetry 92 92 93 Oxygen Delivery Method Room Air Room Air Room Air Oxygen Flow Rate 06/11/25 10:58 06/11/25 10:59 06/11/25 12:12 Temperature Pulse Rate 110 H Respiratory Rate 21 H Blood Pressure Pulse Oximetry 85 L 95 Oxygen Delivery Method Room Air Nasal Cannula Oxygen Flow Rate 3 06/11/25 12:34 Temperature Pulse Rate 119 H Respiratory Rate 19 Blood Pressure 115/55 L Pulse Oximetry 99 Oxygen Delivery Method Nasal Cannula Oxygen Flow Rate 3 BMI result Body Mass Index 14.9 Appearance: Alert. Oriented X3. in pain with mild acute distress. Eyes: Pupils equal, round and reactive to light. ENT: Pharynx dry MM Neck: Normal inspection. Neck supple. CVS: tachycardic heart rate and rhythm. Pulses normal. Respiratory: No respiratory distress. Breath sounds normal. Abdomen: Soft and nontender. severe L CVA ttp Skin: Skin warm and dry. pale skin color. Extremities: No lower extremity edema. Neuro: Oriented X 3. No motor deficit. No sensory deficit. CN2-12 intact Course Course Course Narrative: hypoxic after fentanyl, no symptoms, CXR ordered clinically much better she was slightly hypoxic after fentanyl I do suspect that is the cause of her rising lactic acid and not due to infection or severe sepsis will repeat Shyla ComerDO 06/11/25 1126 Reevaluation(s) Reevaluation #1: abnormal CXR - CT scan ordered heavy smoker wheezing given nebulizer therapy Medical Decision Making Medical Decision Making [facility] Narrative: 69 yo female with PMH of smoker, UTI now here with worsening pain, n/v chills at this time will obtain labs, lactic acid, cultures, start on 30cc/kg bolus, IV ceftriaxone, IV fentanyl for pain. At this time will obtain CT scan for worsening hydro/perinephric inflammation. Anticipate admission today. Differential Diagnosis Differential Diagnoses: The differential diagnosis associated with the presentation includes renal colic, pyelo, ROLANDO Admission/Observation Consideration of admission/observation: Escalation of care including admission/observation considered will admit feels better suspect lactic acidosis in error - will repeat pending UA to admit Consult Healthcare Provider Management of the patient was discussed with: Hospitalist (will admit) and Concert Singer (Dr. Noland aware) Lab Data [facility] Lab Attestation statement: I reviewed the patient's lab results. 06/11/25 07:42 06/11/25 07:42 Labs: Lab Results 06/11/25 06/11/25 06/11/25 Range/Units 07:42 07:54 10:09 WBC 8.0 (4.8-10.8) X10*3/uL RBC 4.23 (4.20-5.50) X10*6/uL Hgb 13.1 (12.0-16.0) g/dl Hct 39.4 (37.0-47.0) % MCV 93.1 (80.0-98.0) fL MCH 31.0 (27.0-33.0) pg MCHC 33.2 (31.0-35.0) g/dl RDW 13.3 (11.0-16.0) % Plt Count 118 L (160-400) X10*3/uL MPV 10.9 (9.4-12.3) fL Immature Gran % (Auto) 0.6 H (0.0-0.4) % Neut % (Auto) 84.4 H (45-73) % Lymph % (Auto) 8.3 L (20-40) % [place] % (Auto) 6.6 (2-11) % Eos % (Auto) 0.0 (0-4) % Baso % (Auto) 0.1 (0-2) % Lymph # (Auto) 0.7 L (1.2-4.9) X10*3/uL [place] # (Auto) 0.5 (0.1-1.2) X10*3/uL Eos # (Auto) 0.0 (0.0-0.4) X10*3/uL Baso # (Auto) 0.0 (0.0-0.2) X10*3/uL Abs Immat Gran (auto) 0.05 H (0.00-0.03) X10*3/uL Absolute Neuts (auto) 6.7 (2.0-8.3) x10*3/uL Absolute Nucleated RBC 0.000 (0.0-0.012) X10*3/uL Nucleated RBC % (auto) 0.0 (0.0-0.2) /100WBC VBG pH (7.32-7.43) VBG pCO2 mmHg VBG pO2 mmHg VBG HCO3 (22-26) mmol/L VBG O2 Saturation % VBG Base Excess mmol/L Sodium 140 (135-145) mmol/L Potassium 4.3 (3.3-5.1) mmol/L Chloride 107 (96-108) mmol/L Carbon Dioxide 21 L (22-29) mmol/L Anion Gap 16 (12-20) BUN 20 H (9-16) mg/dL Creatinine 1.16 (0.5-1.4) mg/dL Estim Creat Clear Calc 27.5 Estimated GFR 46 Random Glucose 125 H (60-115) mg/dL Lactic Acid 2.9 H* (0.5-2.0) mmol/L Lactic Acid F/U @ 2Hr 7.6 H* (0.5-2.0) mmol/L Calcium 9.4 (8.4-10.2) mg/dL Magnesium 1.7 (1.6-2.6) mg/dL Total Bilirubin 1.8 H (0.0-1.0) mg/dL AST 27 (5-31) U/L ALT < 6 (0-31) U/L Alkaline Phosphatase 115 (39-117) U/L Total Protein 6.4 L (6.5-8.0) g/dL Albumin 4.0 (3.5-5.0) g/dL Urine Color Urine Appearance Urine pH (5.0-9.0) Ur Specific [place] (1.005-1.025) Urine Protein (Neg-Trace) mg/dL Urine Glucose (UA) (Negative) mg/dL Urine Ketones (Negative) mg/dL Urine Blood (Negative) Urine Nitrite (Negative) Ur Leukocyte Esterase (Negative) Urine RBC (0-2) /HPF Urine WBC (0-5) /HPF Ur Squamous Epith Cells (0-2) /HPF Calcium Oxalate Crystal Urine Bacteria (None Seen) Hyaline Casts (0-2) /LPF 06/11/25 06/11/25 06/11/25 Range/Units 10:52 11:08 12:37 WBC (4.8-10.8) X10*3/uL RBC (4.20-5.50) X10*6/uL Hgb (12.0-16.0) g/dl Hct (37.0-47.0) % MCV (80.0-98.0) fL MCH (27.0-33.0) pg MCHC (31.0-35.0) g/dl RDW (11.0-16.0) % Plt Count (160-400) X10*3/uL MPV (9.4-12.3) fL Immature Gran % (Auto) (0.0-0.4) % Neut % (Auto) (45-73) % Lymph % (Auto) (20-40) % [place] % (Auto) (2-11) % Eos % (Auto) (0-4) % Baso % (Auto) (0-2) % Lymph # (Auto) (1.2-4.9) X10*3/uL [place] # (Auto) (0.1-1.2) X10*3/uL Eos # (Auto) (0.0-0.4) X10*3/uL Baso # (Auto) (0.0-0.2) X10*3/uL Abs Immat Gran (auto) (0.00-0.03) X10*3/uL Absolute Neuts (auto) (2.0-8.3) x10*3/uL Absolute Nucleated RBC (0.0-0.012) X10*3/uL Nucleated RBC % (auto) (0.0-0.2) /100WBC VBG pH (7.32-7.43) VBG pCO2 mmHg VBG pO2 mmHg VBG HCO3 (22-26) mmol/L VBG O2 Saturation % VBG Base Excess mmol/L Sodium (135-145) mmol/L Potassium (3.3-5.1) mmol/L Chloride (96-108) mmol/L Carbon Dioxide (22-29) mmol/L Anion Gap (12-20) BUN (9-16) mg/dL Creatinine (0.5-1.4) mg/dL Estim Creat Clear Calc Estimated GFR Random Glucose (60-115) mg/dL Lactic Acid 5.3 H* 3.6 H* (0.5-2.0) mmol/L Lactic Acid F/U @ 2Hr (0.5-2.0) mmol/L Calcium (8.4-10.2) mg/dL Magnesium (1.6-2.6) mg/dL Total Bilirubin (0.0-1.0) mg/dL AST (5-31) U/L ALT (0-31) U/L Alkaline Phosphatase (39-117) U/L Total Protein (6.5-8.0) g/dL Albumin (3.5-5.0) g/dL Urine Color [place] Urine Appearance Cloudy Urine pH 5.0 (5.0-9.0) Ur Specific [place] >= 1.030 H (1.005-1.025) Urine Protein See Note (Neg-Trace) mg/dL Urine Glucose (UA) See Note (Negative) mg/dL Urine Ketones See Note (Negative) mg/dL Urine Blood Large (3+) H (Negative) Urine Nitrite See Note (Negative) Ur Leukocyte Esterase Trace H (Negative) Urine RBC >20 H (0-2) /HPF Urine WBC 6-10 H (0-5) /HPF Ur Squamous Epith Cells 3-5 (0-2) /HPF Calcium Oxalate Crystal Present Urine Bacteria None Seen (None Seen) Hyaline Casts 6-10 (0-2) /LPF 06/11/25 Range/Units 12:43 WBC (4.8-10.8) X10*3/uL RBC (4.20-5.50) X10*6/uL Hgb (12.0-16.0) g/dl Hct (37.0-47.0) % MCV (80.0-98.0) fL MCH (27.0-33.0) pg MCHC (31.0-35.0) g/dl RDW (11.0-16.0) % Plt Count (160-400) X10*3/uL MPV (9.4-12.3) fL Immature Gran % (Auto) (0.0-0.4) % Neut % (Auto) (45-73) % Lymph % (Auto) (20-40) % [place] % (Auto) (2-11) % Eos % (Auto) (0-4) % Baso % (Auto) (0-2) % Lymph # (Auto) (1.2-4.9) X10*3/uL [place] # (Auto) (0.1-1.2) X10*3/uL Eos # (Auto) (0.0-0.4) X10*3/uL Baso # (Auto) (0.0-0.2) X10*3/uL Abs Immat Gran (auto) (0.00-0.03) X10*3/uL Absolute Neuts (auto) (2.0-8.3) x10*3/uL Absolute Nucleated RBC (0.0-0.012) X10*3/uL Nucleated RBC % (auto) (0.0-0.2) /100WBC VBG pH 7.40 (7.32-7.43) VBG pCO2 35 mmHg VBG pO2 84 mmHg VBG HCO3 22 (22-26) mmol/L VBG O2 Saturation 98.0 % VBG Base Excess -1.5 mmol/L Sodium (135-145) mmol/L Potassium (3.3-5.1) mmol/L Chloride (96-108) mmol/L Carbon Dioxide (22-29) mmol/L Anion Gap (12-20) BUN (9-16) mg/dL Creatinine (0.5-1.4) mg/dL Estim Creat Clear Calc Estimated GFR Random Glucose (60-115) mg/dL Lactic Acid (0.5-2.0) mmol/L Lactic Acid F/U @ 2Hr (0.5-2.0) mmol/L Calcium (8.4-10.2) mg/dL Magnesium (1.6-2.6) mg/dL Total Bilirubin (0.0-1.0) mg/dL AST (5-31) U/L ALT (0-31) U/L Alkaline Phosphatase (39-117) U/L Total Protein (6.5-8.0) g/dL Albumin (3.5-5.0) g/dL Urine Color Urine Appearance Urine pH (5.0-9.0) Ur Specific [place] (1.005-1.025) Urine Protein (Neg-Trace) mg/dL Urine Glucose (UA) (Negative) mg/dL Urine Ketones (Negative) mg/dL Urine Blood (Negative) Urine Nitrite (Negative) Ur Leukocyte Esterase (Negative) Urine RBC (0-2) /HPF Urine WBC (0-5) /HPF Ur Squamous Epith Cells (0-2) /HPF Calcium Oxalate Crystal Urine Bacteria (None Seen) Hyaline Casts (0-2) /LPF Independent Interpretation I performed an independent interpretation of an: EKG, Plain X-Ray and CT Scan (unchanged stone location) Interpretation: Rate: 79 Rhythm: NSR [place]: righward Normal P waves. Normal ELOISA. Normal QRS complex. ST T wave : normal no TAVO flt t wave aVL qTC: 462 prior studies: no acute ischemia The study has been interpreted contemporaneously by me. . Radiology Impression Discussion of test interpretation with radiology: I have reviewed the radiologist's reading. External Record Review External record reviewed: Outpatient record, Prior outpatient labs and Prior outpatient radiology Medications Administered Generic Name Dose Route Start Last Admin Trade Name Freq PRN Reason Stop Dose Admin Lactated Ringer's 1,000 mls @ 80 mls/hr 06/11/25 11:45 06/11/25 12:00 Lr IVCONT 80 mls/hr .[id number] MATT Administration Discontinued Medications Generic Name Dose Route Start Last Admin Trade Name Freq PRN Reason Stop Dose Admin Albuterol Sulfate 5 mg/ 0 mg 06/11/25 11:59 06/11/25 12:11 Albuterol/Ipratropium 3 ml INHALE 06/11/25 12:00 7.5 each ONCE ONE Administration Fentanyl 50 mcg 06/11/25 07:31 06/11/25 07:57 Fentanyl Citrate/Pf 100 Mcg/2 Ml Vial IVPUSH 06/11/25 07:32 50 mcg ONCE ONE Administration Protocol Lactated Ringer's 1,179 mls @ 1,179 mls/hr 06/11/25 07:29 06/11/25 10:30 Lr 30 ml/kg infuse over 1 hr (1179 ml) 06/11/25 08:28 Infused IV Infusion .Q1H ONE Ceftriaxone Sodium 2 gm/ 50 mls @ 100 mls/hr 06/11/25 07:29 06/11/25 08:39 Sodium Chloride IV 06/11/25 07:58 Infused ONCE ONE Infusion Acetaminophen 1,000 mg in 100 mls @ 400 mls/hr 06/11/25 07:29 06/11/25 08:15 Ofirmev IV 06/11/25 07:43 Infused ONCE ONE Infusion Lactated Ringer's 1,000 mls @ 999 mls/hr 06/11/25 08:38 06/11/25 10:30 Lr IV 06/11/25 09:38 Infused .Q1H1M ONE Infusion Ondansetron HCl 4 mg 06/11/25 07:52 06/11/25 07:57 Ondansetron Hcl 4 Mg/2 Ml Vial IVPUSH 06/11/25 07:53 4 mg ONCE ONE Administration Prochlorperazine Edisylate 5 mg 06/11/25 08:50 06/11/25 09:07 Prochlorperazine Edisylate 10 Mg/2 Ml Vial IVPUSH 06/11/25 08:51 5 mg ONCE ONE Administration Critical Care Time Critical Care Time Critical Care Time: Yes Total Critical Care Time: 45 Attestation: Time is exclusive of separately billable procedures. Time includes: direct patient care, patient reassessment, coordination of patient care, interpretation of data (laboratory data, pulse oximetry, arterial blood gases and chest xrays), review of patient's medical records, medical consultation and documentation of patient care. Procedures excluded from critical care time: electrocardiography. I attest to this time spent taking care of the patient Discharge Plan Discharge Clinical Impression: Ureterolithiasis, Intractable nausea and vomiting, Left flank pain, Acidosis, lactic, Hypoxia, Acute bronchospasm, Lung mass Patient Disposition: Admitted As Inpatient Print Language: Vietnamese
[2025-06-11] MEDS: Lactated Ringers 1,000 ML 999 ML IV (08:49)
--- NOTE | 2025-06-11 09:55 | PC.NURSE ---
pt appears more comfortable after medications. RR even and unlabored, laying with eyes closed.
[2025-06-11 09:57] LABS: Reflex Lactate? Lactic Acid Added
[2025-06-11 10:43] LABS: ~Lactic Acid-LAB USE ONLY 7.6 mmol/L (0.5-2.0)
--- NOTE | 2025-06-11 11:04 | PC.NURSE ---
pt desatted to spo2 of 85% on RA, placed on 3L NC and came back up to mid 90s. Provider aware.
[2025-06-11 11:14] LABS: Appearance Urine Cloudy; PH 5.0 (5.0-9.0); Specific Gravity - Urine >= 1.030 (1.005-1.025); UMIC TRIGGER UACC YES
[2025-06-11 11:29] LABS: UACC Culture Trigger YES
[2025-06-11] MEDS: Lactated Ringers 1,000 ML 80 ML IVCONT (12:00)
[2025-06-11] MEDS: Albuterol Sulfate 5 MG, Albuterol/Iprat 2.5/0.5MG 3 ML 3 ML INHALE (12:11)
[2025-06-11 12:18] LABS: Reflex Lactate? 2 Y
--- NOTE | 2025-06-11 12:28 | PC.NURSE ---
pt seen by respiratory, breathing treatment in progress
[2025-06-11 12:46] LABS: VBG HCO3 22 mmol/L (22-26); VBG O2 % Saturation 98.0 %
[2025-06-11 12:46] LABS: Venous Blood Gas Refer to POC result
[2025-06-11 12:59] LABS: Reflex Lactate? Lactic Acid Added
--- NOTE | 2025-06-11 13:53 | P.HPHOSP_ITS ---
History of Present Illness Date of Service: 06/11/25 Chief Complaint: left flank pain 69F PMH COPD, ?cirrhosis, alcohol dependence reports remission, presented with left flank pain. Patient was in ED on 06/09/2025 found to have obstructing 3 mm stone was discharged on Flomax and Ceftin. Subsequently continued to have significant left-sided flank pain so returned to ED. Denies fever or chills. Denies gross hematuria. Denies history of nephrolithiasis. In ED found to have 3 mm obstructing left ureteral stone with mild left hydronephrosis unchanged. 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 Noted to be hypoxic in ED down to 85% on room air with lactic acid of 7. Denies shortness breath Review of Systems 2 Review of Systems: Yes all other systems are reviewed and are negative [facility] Medical History Kidney stones UTI (urinary tract infection) Social History Patient Tobacco Use Status: Current everyday Tobacco user Smoked in Last 30 Days: Yes Use of substances other than those prescribed or required for medical reasons: No Advance Directives: Yes Advance Directives Information Provided: Yes Advance Directives on File: No Do you have a plan to hurt others: No Plan Meds Allergies Allergy/AdvReac Type Severity Reaction Status Date / Time codeine (CODEINE) Allergy Unknown UNKNOWN Verified 06/11/25 07:27 nitroglycerin (NITROGLYCERIN) Allergy Unknown TACHYCARDIA Verified 06/11/25 07:27 Active Medications: Current Medications Acetaminophen (Acetaminophen 325 Mg Tablet) 650 mg PO Q6H PRN PRN Reason: Pain, Mild 1-3,fever,headache Albuterol/Ipratropium (Albuterol/Iprat 2.5/0.5mg 3 Ml Ampul.Neb) 3 ml INHALE RQ4H WHILE AWAKE PRN PRN Reason: sob Calcium Carbonate (Calcium Carbonate 750 Mg Tab.Chew) 750 mg PO Q4H PRN PRN Reason: Heartburn Enoxaparin Sodium (Enoxaparin Sodium 40 Mg/0.4 Ml Syringe) 40 mg SUBCUT Q24H MATT Hydromorphone HCl (Hydromorphone Hcl 0.5 Mg/0.5 Ml Syringe) 0.5 mg IVPUSH Q4H PRN; Protocol PRN Reason: Pain, Severe (Pain Scale 7-10) Lactated Ringer's (Lr) 1,000 mls @ 80 mls/hr IVCONT .[id number] [facility] Last Admin: 06/11/25 12:00 Dose: 80 mls/hr Ceftriaxone Sodium 1 gm/ (Sodium Chloride) 50 mls @ 100 mls/hr IV Q24H [facility] Magnesium Hydroxide (Milk Of Magnesia 30 Ml Oral.Susp) 30 ml PO DAILY PRN PRN Reason: Constipation Melatonin (Melatonin 3 Mg Tablet) 6 mg PO BEDTIME PRN PRN Reason: Insomnia Sodium Chloride (0.9 % Sodium Chloride Flush 3 Ml Syringe) 3 ml IVFLUSH QSHIFT [facility] Physical Exam 2 Vital Signs and Narrative: Vital Signs: Last Vital Signs Temp 98.3 F 06/11/25 07:30 Pulse 119 H 06/11/25 12:34 Resp 19 06/11/25 12:34 BP 115/55 L 06/11/25 12:34 Pulse Ox 99 06/11/25 12:34 O2 Del Method Nasal Cannula 06/11/25 12:34 O2 Flow Rate 3 06/11/25 12:34 BMI result Body Mass Index 14.9 General: AO X 3, frail and cachectic Resp: Diminished bilateral, no accessory muscles used CVS: S1,S2, rapid regular GI: soft, non tender, non distended Neuro: motor grossly intact, alert Psych: appropriate affect, appropriate insight Results Labs 06/11/25 07:42 06/11/25 07:42 Labs: Laboratory Results - last 24 hr 06/11/25 06/11/25 06/11/25 07:42 07:54 10:09 MCV 93.1 MCH 31.0 MCHC 33.2 RDW 13.3 Plt Count 118 L MPV 10.9 Immature Gran % (Auto) 0.6 H Neut % (Auto) 84.4 H Lymph % (Auto) 8.3 L [place] % (Auto) 6.6 Eos % (Auto) 0.0 Baso % (Auto) 0.1 Lymph # (Auto) 0.7 L [place] # (Auto) 0.5 Eos # (Auto) 0.0 Baso # (Auto) 0.0 Abs Immat Gran (auto) 0.05 H Absolute Neuts (auto) 6.7 Absolute Nucleated RBC 0.000 Nucleated RBC % (auto) 0.0 VBG pH VBG pCO2 VBG pO2 VBG HCO3 VBG O2 Saturation VBG Base Excess Anion Gap 16 Estim Creat Clear Calc 27.5 Estimated GFR 46 Random Glucose 125 H Lactic Acid 2.9 H* Lactic Acid F/U @ 2Hr 7.6 H* Calcium 9.4 Magnesium 1.7 Total Bilirubin 1.8 H AST 27 ALT < 6 Alkaline Phosphatase 115 Total Protein 6.4 L Albumin 4.0 Urine Color Urine Appearance Urine pH Ur Specific [place] Urine Protein Urine Glucose (UA) Urine Ketones Urine Blood Urine Nitrite Ur Leukocyte Esterase Urine RBC Urine WBC Ur Squamous Epith Cells Calcium Oxalate Crystal Urine Bacteria Hyaline Casts 06/11/25 06/11/25 06/11/25 10:52 11:08 12:37 MCV MCH MCHC RDW Plt Count MPV Immature Gran % (Auto) Neut % (Auto) Lymph % (Auto) [place] % (Auto) Eos % (Auto) Baso % (Auto) Lymph # (Auto) [place] # (Auto) Eos # (Auto) Baso # (Auto) Abs Immat Gran (auto) Absolute Neuts (auto) Absolute Nucleated RBC Nucleated RBC % (auto) VBG pH VBG pCO2 VBG pO2 VBG HCO3 VBG O2 Saturation VBG Base Excess Anion Gap Estim Creat Clear Calc Estimated GFR Random Glucose Lactic Acid 5.3 H* 3.6 H* Lactic Acid F/U @ 2Hr Calcium Magnesium Total Bilirubin AST ALT Alkaline Phosphatase Total Protein Albumin Urine Color [place] Urine Appearance Cloudy Urine pH 5.0 Ur Specific [place] >= 1.030 H Urine Protein See Note Urine Glucose (UA) See Note Urine Ketones See Note Urine Blood Large (3+) H Urine Nitrite See Note Ur Leukocyte Esterase Trace H Urine RBC >20 H Urine WBC 6-10 H Ur Squamous Epith Cells 3-5 Calcium Oxalate Crystal Present Urine Bacteria None Seen Hyaline Casts 6-10 06/11/25 12:43 MCV MCH MCHC RDW Plt Count MPV Immature Gran % (Auto) Neut % (Auto) Lymph % (Auto) [place] % (Auto) Eos % (Auto) Baso % (Auto) Lymph # (Auto) [place] # (Auto) Eos # (Auto) Baso # (Auto) Abs Immat Gran (auto) Absolute Neuts (auto) Absolute Nucleated RBC Nucleated RBC % (auto) VBG pH 7.40 VBG pCO2 35 VBG pO2 84 VBG HCO3 22 VBG O2 Saturation 98.0 VBG Base Excess -1.5 Anion Gap Estim Creat Clear Calc Estimated GFR Random Glucose Lactic Acid Lactic Acid F/U @ 2Hr Calcium Magnesium Total Bilirubin AST ALT Alkaline Phosphatase Total Protein Albumin Urine Color Urine Appearance Urine pH Ur Specific [place] Urine Protein Urine Glucose (UA) Urine Ketones Urine Blood Urine Nitrite Ur Leukocyte Esterase Urine RBC Urine WBC Ur Squamous Epith Cells Calcium Oxalate Crystal Urine Bacteria Hyaline Casts Imaging Radiologist's Impressions: Impressions Abdomen/Pelvis CT 06/11/25 08:35 IMPRESSION: Mild left hydronephrosis and proximal ureteral dilatation from a 3 mm left ureteral stone. This does not appear appreciably changed from June 09, 2025 exam. Small left renal stone. 4 mm central right renal stone probably in the right renal pelvis. No right hydronephrosis. Other stable findings of cirrhosis, varices, gallstone and changes from chronic pancreatitis. Electronically signed by: Demi Dean MD 06/11/2025 09:08 AM EDT Chest X-Ray 06/11/25 11:21 IMPRESSION: 1. Opacification over the right lung apex and obliteration of the right costophrenic angle could represent loculated pleural effusion and/or pleural thickening. 2. No consolidations in the remainder lungs. Electronically signed by: Abby Borden MD 06/11/2025 11:[address] 06/11/25 12:04 IMPRESSION: There is an irregular area of pleural thickening in the right apex measuring up to 1.8 cm thick. It demonstrates heterogeneous low density with spiculated margins. While this could represent loculated fluid or benign pleural thickening, a more aggressive etiology is not excluded given the overall thickness, invagination into apical fat, and spiculations in the adjacent lung. Moderate emphysema. Small layering bilateral pleural effusions. Cholelithiasis. Nephrolithiasis: There is a 2 mm nonobstructing stone in the left kidney. Osteopenia with age-indeterminate compression fractures at the thoracolumbar junction. Fleischner guidelines were followed. Electronically signed by: Memo Eid MD 06/11/2025 12:36 PM EDT Assessment and Plan (1) Left flank pain: Status: Acute Plan 69F PMH COPD, ?cirrhosis, alcohol dependence reports remission, presented with left flank pain Obstructing left ureteral stone with hydronephrosis IV fluids, ceftriaxone, eval, pain control Acute hypoxia complicated by acute lactic acidosis Due to albuterol and hypoxia and not sepsis ? 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
[2025-06-11 13:59] LABS: Cancel Lactic Acid Canceled
--- NOTE | 2025-06-11 16:05 | PHA.MEDREC ---
Addendum entered by Morris Rivera RPh 06/11/25 16:39: MED REC REVIEWED BY [facility] Original Note: Pharmacy Consult ? Medication Reconciliation Pharmacy has completed the medication reconciliation. Spoke with pt and she confirmed her medications. Pt confirmed she started the Cefuroxime (1 tab BID), Oxycodone (1/2 tab Q8H PRN Pain) and Tamsulosin (1 cap QD) yesterday and states she took 1/2 tab of Oxycodone this morning before coming in the ED.
[2025-06-12] MEDS: Lactated Ringers 1,000 ML 80 ML IVCONT ×2 (01:19→12:42)
[2025-06-12 03:02] VITALS: BP 100/51; PULSE 105; RESP 18; TEMP 37.1; O2SAT 94
[2025-06-12 06:20] LABS: Hematocrit 36.1 % (37.0-47.0); Hemoglobin 11.4 g/dl (12.0-16.0); Mean Corpuscular HGB Conc 31.6 g/dl (31.0-35.0); Mean Corpuscular Hemoglobin 30.4 pg (27.0-33.0); Mean Corpuscular Volume 96.3 fL (80.0-98.0); NRBC Abs Auto 0.000 X10*3/uL (0.0-0.012); NRBC Pct Auto 0.0 /100WBC (0.0-0.2); PLT CLUMP 1; Red Blood Count 3.75 X10*6/uL (4.20-5.50)
[2025-06-12 06:27] LABS: Platelet Count 72 X10*3/uL (160-400); White Blood Count 6.6 X10*3/uL (4.8-10.8)
[2025-06-12 06:28] LABS: INTERNATIONAL NORM RATIO 1.0 (0.9-1.1); Prothrombin Time 11.9 SEC (10.9-12.4)
[2025-06-12 06:36] LABS: Alanine Aminotransferase < 6 U/L (0-31); Albumin Level 3.2 g/dL (3.5-5.0); Alkaline Phosphatase 83 U/L (39-117); Anion Gap 12 (12-20); Aspartate Amino Transferase 29 U/L (5-31); Blood Urea Nitrogen 20 mg/dL (9-16); Calcium 9.0 mg/dL (8.4-10.2); Carbon Dioxide 27 mmol/L (22-29); Chloride 108 mmol/L (96-108); Creatinine Clr Calc Pharmacy 47.3; Estimated Glomerular Filt Rate > 60; Iron 45 mcg/dL (30-160); Magnesium 1.7 mg/dL (1.6-2.6); Percent Iron Saturation 27 % (15-50); Potassium 5.2 mmol/L (3.3-5.1); Sodium 142 mmol/L (135-145); Total Iron Binding Capacity 169 mcg/dL (228-428); Total Protein 5.1 g/dL (6.5-8.0); Unsaturated Iron Binding 124 ug/dL
[2025-06-12 06:52] LABS: HBc Num1 0.08 S/CO (0.00-0.79)
[2025-06-12 06:53] LABS: HBS Num1 0.27 mIU/mL (0-7.99); HBsAGNum1 0.43 S/CO (0.00-0.99); Hepatitis B Surface Antigen Negative (Negative); ~HepC Num1 0.15 S/CO (0.00-0.79); ~Hepatitis B Surface Antibody NONREACTIVE (Nonreactive); ~Hepatitis C Antibody Nonreactive (Nonreactive)
[2025-06-12 07:59] VITALS: BP 112/59; PULSE 110; RESP 18; TEMP 36.9; O2SAT 92
--- NOTE | 2025-06-12 10:18 | HO.PM.IMPN ---
Subjective Subjective Date of Service: 06/12/25 Interval History: ongoing left flank pain Physical Exam Exam: Exam: General: AO X 3, frail and cachectic Resp: Diminished bilateral, no accessory muscles used CVS: S1,S2, rapid regular GI: soft, non tender, non distended Neuro: motor grossly intact, alert Psych: appropriate affect, appropriate insight Vital Signs: Vital Signs: Last Vital Signs Temp 98.5 F 06/12/25 07:59 Pulse 110 H 06/12/25 07:59 Resp 18 06/12/25 07:59 BP 112/59 L 06/12/25 07:59 Pulse Ox 92 06/12/25 07:59 O2 Del Method Room Air 06/12/25 07:59 O2 Flow Rate 2 06/12/25 03:02 BMI result Body Mass Index 16.1 Objective Data Active Medications Acetaminophen (Acetaminophen 325 Mg Tablet) 650 mg PO Q6H PRN PRN Reason: Pain, Mild 1-3,fever,headache Albuterol/Ipratropium (Albuterol/Iprat 2.5/0.5mg 3 Ml Ampul.Neb) 3 ml INHALE RQ4H WHILE AWAKE PRN PRN Reason: sob Calcium Carbonate (Calcium Carbonate 750 Mg Tab.Chew) 750 mg PO Q4H PRN PRN Reason: Heartburn Enoxaparin Sodium (Enoxaparin Sodium 30 Mg/0.3 Ml Syringe) 30 mg SUBCUT Q24H [facility] Last Admin: 06/11/25 15:17 Dose: 30 mg Documented By: ELAINE Hydromorphone HCl (Hydromorphone Hcl 0.5 Mg/0.5 Ml Syringe) 0.5 mg IVPUSH Q4H PRN; Protocol PRN Reason: Pain, Severe (Pain Scale 7-10) Last Admin: 06/12/25 07:52 Dose: 0.5 mg Documented By: UMANG Lactated Ringer's (Lr) 1,000 mls @ 80 mls/hr IVCONT .[id number] [facility] Last Admin: 06/12/25 01:19 Dose: 80 mls/hr Documented By: MARIEEBDEBORA Ceftriaxone Sodium 1 gm/ (Sodium Chloride) 50 mls @ 100 mls/hr IV Q24H [facility] Last Infusion: 06/12/25 08:28 Dose: Infused Documented By: UMANG Magnesium Hydroxide (Milk Of Magnesia 30 Ml Oral.Susp) 30 ml PO DAILY PRN PRN Reason: Constipation Melatonin (Melatonin 3 Mg Tablet) 6 mg PO BEDTIME PRN PRN Reason: Insomnia Sodium Chloride (0.9 % Sodium Chloride Flush 3 Ml Syringe) 3 ml IVFLUSH QSHIFT [facility] Last Admin: 06/12/25 08:01 Dose: Not Given Documented By: UMANG Non-Admin Reason: IV Running Tamsulosin HCl (Tamsulosin Hcl 0.4 Mg Capsule) 0.4 mg PO DAILY [facility] Last Admin: 06/12/25 08:01 Dose: 0.4 mg Documented By: UMANG Labs 06/12/25 06:09 06/12/25 06:09 Labs: Laboratory Results - last 24 hr 06/11/25 06/11/25 06/11/25 10:09 10:52 11:08 MCV MCH MCHC RDW Plt Count MPV Absolute Nucleated RBC Nucleated RBC % (auto) PT INR VBG pH VBG pCO2 VBG pO2 VBG HCO3 VBG O2 Saturation VBG Base Excess Anion Gap Estim Creat Clear Calc Estimated GFR Random Glucose Lactic Acid 5.3 H* Lactic Acid F/U @ 2Hr 7.6 H* Calcium Magnesium Iron TIBC % Saturation Unsat Iron Binding Total Bilirubin Direct Bilirubin AST ALT Alkaline Phosphatase Total Protein Albumin Urine Color [place] Urine Appearance Cloudy Urine pH 5.0 Ur Specific [place] >= 1.030 H Urine Protein See Note Urine Glucose (UA) See Note Urine Ketones See Note Urine Blood Large (3+) H Urine Nitrite See Note Ur Leukocyte Esterase Trace H Urine RBC >20 H Urine WBC 6-10 H Ur Squamous Epith Cells 3-5 Calcium Oxalate Crystal Present Urine Bacteria None Seen Hyaline Casts 6-10 Hep Bs Antigen Hep Bs Antibody Hep B Core Total Ab Hepatitis C Ab (EIA) 06/11/25 06/11/25 06/12/25 12:37 12:43 06:09 MCV 96.3 MCH 30.4 MCHC 31.6 RDW 13.4 Plt Count 72 L D MPV 12.0 Absolute Nucleated RBC 0.000 Nucleated RBC % (auto) 0.0 PT 11.9 INR 1.0 VBG pH 7.40 VBG pCO2 35 VBG pO2 84 VBG HCO3 22 VBG O2 Saturation 98.0 VBG Base Excess -1.5 Anion Gap 12 Estim Creat Clear Calc 47.3 Estimated GFR > 60 Random Glucose 90 Lactic Acid 3.6 H* Lactic Acid F/U @ 2Hr Calcium 9.0 Magnesium 1.7 Iron 45 TIBC 169 L % Saturation 27 Unsat Iron Binding 124 Total Bilirubin 0.9 Direct Bilirubin 0.4 AST 29 ALT < 6 Alkaline Phosphatase 83 Total Protein 5.1 L Albumin 3.2 L Urine Color Urine Appearance Urine pH Ur Specific [place] Urine Protein Urine Glucose (UA) Urine Ketones Urine Blood Urine Nitrite Ur Leukocyte Esterase Urine RBC Urine WBC Ur Squamous Epith Cells Calcium Oxalate Crystal Urine Bacteria Hyaline Casts Hep Bs Antigen Negative Hep Bs Antibody NONREACTIVE Hep B Core Total Ab Nonreactive Hepatitis C Ab (EIA) Nonreactive Microbiology Microbiology Results: Microbiology 06/11/25 07:54 Blood Culture - Preliminary Blood - Venous No growth after 24 hours. 06/11/25 07:42 Blood Culture - Preliminary Blood - Venous No growth after 24 hours. Assessment and Plan (1) Left flank pain: Status: Acute Plan 69F PMH COPD, ?cirrhosis, alcohol dependence reports remission, presented with left flank pain Obstructing left ureteral stone with hydronephrosis IV fluids, ceftriaxone, eval, pain control Acute hypoxia complicated by acute lactic acidosis Due to albuterol and hypoxia and not sepsis ? 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 due to history of etoh dependence in [facility] viral hepatitis negative DVT prophylaxis - lovenox Full code reason for continued hospitalization:gu eval pending Quality Stroke Does the patient have a stroke diagnosis?: No VTE Prior VTE?: No VTE Risk Level:: Medical - moderate - high VTE Device Contraindication: Treatment Not Indicated VTE Drug Contraindication: N/A - Med Ordered
--- NOTE | 2025-06-12 12:40 | P.CNUR_ITS ---
History of Present Illness Consult details Consult date: 06/12/25 Narrative: cc: left flank pain with small ureteric stone 69-year-old female Medical comorbidities COPD with prior alcohol dependence Initial presentation 06/09. Re presentation with persistent left flank imaging shows small 3 mm stone at junction between proximal and mid left ureter. Associated hydro uretero nephrosis. UA with significant dehydration, positive nitrites, positive blood. Elevated acidosis and hypoxia. Hypoxia thought to be secondary to COPD CT scan incidental finding of liver cirrhosis with varices diagnostic chronic pancreatitis. Creatinine has responded well to rehydration drop from 1.22 baseline 0.7. Continue conservative therapy with aggressive hydration and diuresis with antibiotics. Reassess at 48 hours for possible stent placement Review of Systems 2 Constitutional: Constitutional: Reports as per HPI and Reports no additional constitutional complaints Cardiovascular: Cardiovascular: Reports as per HPI and Reports no additional cardiovascular complaints Respiratory: Respiratory: Reports as per HPI and Reports no additional respiratory complaints Gastrointestinal: Gastrointestinal: Reports as per HPI and Reports no additional gastrointestinal complaints Genitourinary: Genitourinary: Reports as per HPI Musculoskeletal: Musculoskeletal: Reports no additional musculoskeletal complaints and Reports as per HPI Neurologic: Reports system reviewed and no additional complaints, except as documented and Reports as per HPI PMF Past Medical History Medical History (Updated 06/12/25 @ 12:45 by Roberto Noland MD) UTI (urinary tract infection) Kidney stones Social History Social History Household Members: Spouse Housing: House Do you presently have visiting nurse or other home services: No Patient Tobacco Use Status: Current everyday Tobacco user Tobacco use type: Cigarette Cigarette Packs Per Day: 10 Cigarettes Per Day: 10 Advance Directives Date on File: 06/11/25 Meds Allergies Allergy/AdvReac Type Severity Reaction Status Date / Time codeine (CODEINE) Allergy Unknown UNKNOWN Verified 06/11/25 07:27 nitroglycerin (NITROGLYCERIN) Allergy Unknown TACHYCARDIA Verified 06/11/25 07:27 Active Medications: Current Medications Acetaminophen (Acetaminophen 325 Mg Tablet) 650 mg PO Q6H PRN PRN Reason: Pain, Mild 1-3,fever,headache Albuterol/Ipratropium (Albuterol/Iprat 2.5/0.5mg 3 Ml Ampul.Neb) 3 ml INHALE RQ4H WHILE AWAKE PRN PRN Reason: sob Calcium Carbonate (Calcium Carbonate 750 Mg Tab.Chew) 750 mg PO Q4H PRN PRN Reason: Heartburn Enoxaparin Sodium (Enoxaparin Sodium 40 Mg/0.4 Ml Syringe) 40 mg SUBCUT Q24H [facility] Hydromorphone HCl (Hydromorphone Hcl 0.5 Mg/0.5 Ml Syringe) 0.5 mg IVPUSH Q3H PRN; Protocol PRN Reason: Pain, Severe (Pain Scale 7-10) Last Admin: 06/12/25 11:07 Dose: 0.5 mg Lactated Ringer's (Lr) 1,000 mls @ 80 mls/hr IVCONT .[id number] [facility] Last Admin: 06/12/25 01:19 Dose: 80 mls/hr Ceftriaxone Sodium 1 gm/ (Sodium Chloride) 50 mls @ 100 mls/hr IV Q24H [facility] Last Infusion: 06/12/25 08:28 Dose: Infused Magnesium Hydroxide (Milk Of Magnesia 30 Ml Oral.Susp) 30 ml PO DAILY PRN PRN Reason: Constipation Melatonin (Melatonin 3 Mg Tablet) 6 mg PO BEDTIME PRN PRN Reason: Insomnia Sodium Chloride (0.9 % Sodium Chloride Flush 3 Ml Syringe) 3 ml IVFLUSH QSHIFT [facility] Last Admin: 06/12/25 08:01 Dose: Not Given Tamsulosin HCl (Tamsulosin Hcl 0.4 Mg Capsule) 0.4 mg PO DAILY [facility] Last Admin: 06/12/25 08:01 Dose: 0.4 mg Home Medications ?Medication ?Instructions ?Recorded ?Confirmed ?Last Taken ?Type ibuprofen 200 mg tablet 200 mg PO Q6H PRN Migraine H eadache 06/11/25 06/11/25 06/10/25 History Physical Exam 2 Vital Signs: Vital Signs: Last Vital Signs Temp 98.5 F 06/12/25 07:59 Pulse 110 H 06/12/25 07:59 Resp 18 06/12/25 07:59 BP 112/59 L 06/12/25 07:59 Pulse Ox 92 06/12/25 07:59 O2 Del Method Room Air 06/12/25 07:59 O2 Flow Rate 2 06/12/25 03:02 BMI result Body Mass Index 16.1 Const: General: cooperative, healthy appearing, comfortable and no acute distress Orientation/consciousness: patient oriented x3 HEENT: Face and sinus: Yes normal facial exam Mouth: moist mucous membranes Neck: Neck: Yes normal visual inspection, Yes full ROM and Yes trachea midline Chest: Chest palpation & inspection: normal inspection of the chest Resp: Effort & Inspection: normal respiratory effort, able to speak in complete sentences and no respiratory distress GI: Inspection: Yes normal to inspection Back/Spine/Pelvis: Cervical Spine: normal cervical lordosis Thoracic/Lumbar Spine: thoracic and lumbar spine normal to inspection Skin: General skin exam: no rashes or lesions noted Neuro: General: patient oriented x3, tone normal and moves all extremities Extrem: General: Yes normal to inspection and Yes capillary refill normal Results Labs 06/12/25 06:09 06/12/25 06:09 Labs: Abnormal lab results 06/11/25 06/12/25 Range/Units 12:37 06:09 RBC 3.75 L (4.20-5.50) X10*6/uL Hgb 11.4 L (12.0-16.0) g/dl Hct 36.1 L (37.0-47.0) % Plt Count 72 L D (160-400) X10*3/uL Potassium 5.2 H D (3.3-5.1) mmol/L BUN 20 H (9-16) mg/dL Lactic Acid 3.6 H* (0.5-2.0) mmol/L TIBC 169 L (228-428) mcg/dL Total Protein 5.1 L (6.5-8.0) g/dL Albumin 3.2 L (3.5-5.0) g/dL Short CBC 06/12/25 Range/Units 06:09 WBC 6.6 (4.8-10.8) X10*3/uL Hgb 11.4 L (12.0-16.0) g/dl Hct 36.1 L (37.0-47.0) % Plt Count 72 L D (160-400) X10*3/uL BMP 06/12/25 06:09 Sodium 142 Potassium 5.2 H D Chloride 108 Carbon Dioxide 27 BUN 20 H Creatinine 0.73 Calcium 9.0 Liver Function 06/12/25 Range/Units 06:09 Total Bilirubin 0.9 (0.0-1.0) mg/dL Direct Bilirubin 0.4 (0.0-0.5) mg/dL AST 29 (5-31) U/L ALT < 6 (0-31) U/L Alkaline Phosphatase 83 (39-117) U/L Albumin 3.2 L (3.5-5.0) g/dL Urine 06/11/25 Range/Units 11:08 Urine Color [place] Urine Appearance Cloudy Urine pH 5.0 (5.0-9.0) Ur Specific [place] >= 1.030 H (1.005-1.025) Urine Protein See Note (Neg-Trace) mg/dL Urine Glucose (UA) See Note (Negative) mg/dL All other labs normal. Assessment and Plan (1) Ureterolithiasis: Status: Acute (2) Acidosis, lactic: Status: Acute (3) Left flank pain: Status: Acute (4) UTI (urinary tract infection): Qualifiers: Urinary tract infection type: acute cystitis Hematuria presence: with hematuria Qualified Code(s): N30.01 - Acute cystitis with hematuria Status: Acute Plan Conservative medical therapy for 48 hours with reassessment for possible stone intervention Aggressive rehydration and antibiotics. Procedures Date of Service Date of Service: 06/12/25
[2025-06-12 15:23] VITALS: BP 111/56; PULSE 111; RESP 16; TEMP 36.6; O2SAT 92
--- NOTE | 2025-06-12 16:27 | MHC.CM.PN ---
IMM 06/12/25, PT W/HYPOXIA D/T LACTIC ACIDOSIS/KIDNEY STONE, CM MET W/PT WHO REPORTS SHE LIVES W/[facility], PT DENIES USE OF DME/SERVICES, GOAL FOR DC IS HOME ONCE MEDICALLY CLEARED. PT VERIFIES PCP ON FILE AND REPORTS HCP IS [facility] AND COMPLETED W/GLUE SPRAYER, CM HAS REQUESTED A COPY TO BE BROUGHT IN. DP: HOME NO SERIVICES W/PT'S DTR FOR TRANSPORT
[2025-06-12 19:51] VITALS: BP 119/55; PULSE 110; RESP 18; TEMP 36.4; O2SAT 93
[2025-06-13] MEDS: Lactated Ringers 1,000 ML 80 ML IVCONT (00:58)
[2025-06-13 03:14] VITALS: BP 107/55; PULSE 103; RESP 16; TEMP 36.3; O2SAT 92
[2025-06-13 06:12] LABS: Hematocrit 36.1 % (37.0-47.0); Hemoglobin 11.5 g/dl (12.0-16.0); Mean Corpuscular HGB Conc 31.9 g/dl (31.0-35.0); Mean Corpuscular Hemoglobin 30.8 pg (27.0-33.0); Mean Corpuscular Volume 96.8 fL (80.0-98.0); NRBC Abs Auto 0.000 X10*3/uL (0.0-0.012); NRBC Pct Auto 0.0 /100WBC (0.0-0.2); Platelet Count 79 X10*3/uL (160-400); Red Blood Count 3.73 X10*6/uL (4.20-5.50); White Blood Count 5.9 X10*3/uL (4.8-10.8)
[2025-06-13 06:23] LABS: Anion Gap 12 (12-20); Blood Urea Nitrogen 20 mg/dL (9-16); Calcium 9.0 mg/dL (8.4-10.2); Carbon Dioxide 27 mmol/L (22-29); Chloride 105 mmol/L (96-108); Creatinine Clr Calc Pharmacy 50.2; Estimated Glomerular Filt Rate > 60; Potassium 3.8 mmol/L (3.3-5.1); Sodium 140 mmol/L (135-145)
[2025-06-13 07:29] VITALS: BP 111/55; PULSE 111; RESP 18; TEMP 36.9; O2SAT 92
--- NOTE | 2025-06-13 09:59 | HO.PM.IMPN ---
Subjective Subjective Date of Service: 06/13/25 Interval History: ongoing left flank pain Physical Exam Exam: Exam: General: AO X 3, frail and cachectic Resp: Diminished bilateral, no accessory muscles used CVS: S1,S2, rapid regular GI: soft, non tender, non distended Neuro: motor grossly intact, alert Psych: appropriate affect, appropriate insight Vital Signs: Vital Signs: Last Vital Signs Temp 98.4 F 06/13/25 07:29 Pulse 111 H 06/13/25 07:29 Resp 18 06/13/25 07:29 BP 111/55 L 06/13/25 07:29 Pulse Ox 92 06/13/25 07:29 O2 Del Method Nasal Cannula 06/13/25 07:29 O2 Flow Rate 2.0 06/13/25 07:29 BMI result Body Mass Index 16.1 Const: General: cooperative, healthy appearing, comfortable and no acute distress Orientation/consciousness: patient oriented x3 HEENT: Face and sinus: Yes normal facial exam Mouth: moist mucous membranes Neck: Neck: Yes normal visual inspection, Yes full ROM and Yes trachea midline Chest: Chest palpation & inspection: normal inspection of the chest Resp: Effort & Inspection: normal respiratory effort, able to speak in complete sentences and no respiratory distress GI: Inspection: Yes normal to inspection Back/Spine/Pelvis: Cervical Spine: normal cervical lordosis Thoracic/Lumbar Spine: thoracic and lumbar spine normal to inspection Skin: General skin exam: no rashes or lesions noted Neuro: General: patient oriented x3, tone normal and moves all extremities Extrem: General: Yes normal to inspection and Yes capillary refill normal Objective Data Active Medications Acetaminophen (Acetaminophen 325 Mg Tablet) 650 mg PO Q6H PRN PRN Reason: Pain, Mild 1-3,fever,headache Albuterol/Ipratropium (Albuterol/Iprat 2.5/0.5mg 3 Ml Ampul.Neb) 3 ml INHALE RQ4H WHILE AWAKE PRN PRN Reason: sob Calcium Carbonate (Calcium Carbonate 750 Mg Tab.Chew) 750 mg PO Q4H PRN PRN Reason: Heartburn Enoxaparin Sodium (Enoxaparin Sodium 40 Mg/0.4 Ml Syringe) 40 mg SUBCUT Q24H [facility] Last Admin: 06/12/25 16:16 Dose: Not Given Documented By: UMANG Non-Admin Reason: Patient Refused Hydromorphone HCl (Hydromorphone Hcl 0.5 Mg/0.5 Ml Syringe) 0.5 mg IVPUSH Q3H PRN; Protocol PRN Reason: Pain, Severe (Pain Scale 7-10) Last Admin: 06/13/25 01:48 Dose: 0.5 mg Documented By: CATRACHITA Lactated Ringer's (Lr) 1,000 mls @ 80 mls/hr IVCONT .[id number] [facility] Last Admin: 06/13/25 00:58 Dose: 80 mls/hr Documented By: CATRACHITA Ceftriaxone Sodium 1 gm/ (Sodium Chloride) 50 mls @ 100 mls/hr IV Q24H [facility] Last Infusion: 06/13/25 08:40 Dose: Infused Documented By: UMANG Magnesium Hydroxide (Milk Of Magnesia 30 Ml Oral.Susp) 30 ml PO DAILY PRN PRN Reason: Constipation Melatonin (Melatonin 3 Mg Tablet) 6 mg PO BEDTIME PRN PRN Reason: Insomnia Ondansetron HCl (Ondansetron Hcl 4 Mg/2 Ml Vial) 4 mg IVPUSH Q6H PRN PRN Reason: Nausea Last Admin: 06/12/25 15:38 Dose: 4 mg Documented By: UMANG Sodium Chloride (0.9 % Sodium Chloride Flush 3 Ml Syringe) 3 ml IVFLUSH QSHIFT [facility] Last Admin: 06/13/25 08:13 Dose: Not Given Documented By: UMANG Non-Admin Reason: IV Running Tamsulosin HCl (Tamsulosin Hcl 0.4 Mg Capsule) 0.4 mg PO DAILY [facility] Last Admin: 06/13/25 08:08 Dose: 0.4 mg Documented By: UMANG Labs 06/13/25 05:52 06/13/25 05:52 Labs: Laboratory Results - last 24 hr 06/13/25 05:52 MCV 96.8 MCH 30.8 MCHC 31.9 RDW 13.1 Plt Count 79 L MPV 11.2 Absolute Nucleated RBC 0.000 Nucleated RBC % (auto) 0.0 Anion Gap 12 Estim Creat Clear Calc 50.2 Estimated GFR > 60 Random Glucose 99 Calcium 9.0 Microbiology Microbiology Results: Microbiology 06/11/25 07:54 Blood Culture - Preliminary Blood - Venous No growth after 48 hours. 06/11/25 07:42 Blood Culture - Preliminary Blood - Venous No growth after 48 hours. 06/11/25 Unknown Urine Culture - Final Urine clean catch - Clean Catch Midstream No growth. Assessment and Plan (1) Left flank pain: Status: Acute Plan 69F PMH COPD, ?cirrhosis, alcohol dependence reports remission, presented with left flank pain Obstructing left ureteral stone with hydronephrosis IV fluids, ceftriaxone, planning cysto tomorrow, pain control Acute hypoxia complicated by acute lactic acidosis Due to albuterol and hypoxia and not sepsis ? 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 due to history of etoh dependence in remisison viral hepatitis negative DVT prophylaxis - lovenox Full code reason for continued hospitalization:cysto Quality Stroke Does the patient have a stroke diagnosis?: No VTE Prior VTE?: No VTE Risk Level:: Medical - moderate - high VTE Device Contraindication: Treatment Not Indicated VTE Drug Contraindication: N/A - Med Ordered
[2025-06-13 11:53] VITALS: BP 116/55; PULSE 102; RESP 16; TEMP 36.7; O2SAT 92
[2025-06-13 16:00] VITALS: BP 112/54; PULSE 103; RESP 18; TEMP 36.8; O2SAT 92
[2025-06-13 19:53] VITALS: BP 112/56; PULSE 97; RESP 18; TEMP 36.2; O2SAT 92
[2025-06-13] MEDS: 0.9 % Sodium Chloride Flush 3 ML SYRINGE IVFLUSH (21:41)
[2025-06-14] VITALS (9 sets, daily range): BP systolic 88–131; BP diastolic 50–72; PULSE 93–114; RESP 14–19; TEMP 35.9–36.9; O2SAT 92–96; BMI 16.1
--- NOTE | 2025-06-14 08:08 | P.PNIM_ITS ---
Subjective Subjective Date of Service: 06/14/25 Interval History: ongoing left flank pain Physical Exam 2 Exam: Exam: General: AO X 3, frail and cachectic Resp: Diminished bilateral, no accessory muscles used CVS: S1,S2, rapid regular GI: soft, non tender, non distended Neuro: motor grossly intact, alert Psych: appropriate affect, appropriate insight Vital Signs: Vital Signs: Last Vital Signs Temp 97.4 F 06/14/25 07:26 Pulse 114 H 06/14/25 07:26 Resp 16 06/14/25 07:26 BP 102/54 L 06/14/25 07:26 Pulse Ox 92 06/14/25 07:26 O2 Del Method Nasal Cannula 06/14/25 07:26 O2 Flow Rate 2 06/14/25 07:26 BMI result Body Mass Index 16.1 Const: General: cooperative, healthy appearing, comfortable and no acute distress Orientation/consciousness: patient oriented x3 HEENT: Face and sinus: Yes normal facial exam Mouth: moist mucous membranes Neck: Neck: Yes normal visual inspection, Yes full ROM and Yes trachea midline Chest: Chest palpation & inspection: normal inspection of the chest Resp: Effort & Inspection: normal respiratory effort, able to speak in complete sentences and no respiratory distress GI: Inspection: Yes normal to inspection Back/Spine/Pelvis: Cervical Spine: normal cervical lordosis Thoracic/Lumbar Spine: thoracic and lumbar spine normal to inspection Skin: General skin exam: no rashes or lesions noted Neuro: General: patient oriented x3, tone normal and moves all extremities Extrem: General: Yes normal to inspection and Yes capillary refill normal Objective Data Active Medications Acetaminophen (Acetaminophen 325 Mg Tablet) 650 mg PO Q6H PRN PRN Reason: Pain, Mild 1-3,fever,headache Albuterol/Ipratropium (Albuterol/Iprat 2.5/0.5mg 3 Ml Ampul.Neb) 3 ml INHALE RQ4H WHILE AWAKE PRN PRN Reason: sob Calcium Carbonate (Calcium Carbonate 750 Mg Tab.Chew) 750 mg PO Q4H PRN PRN Reason: Heartburn Enoxaparin Sodium (Enoxaparin Sodium 40 Mg/0.4 Ml Syringe) 40 mg SUBCUT Q24H [facility] Last Admin: 06/13/25 15:02 Dose: Not Given Documented By: UMANG Non-Admin Reason: Patient Refused Hydromorphone HCl (Hydromorphone Hcl 0.5 Mg/0.5 Ml Syringe) 0.5 mg IVPUSH Q3H PRN; Protocol PRN Reason: Pain, Severe (Pain Scale 7-10) Last Admin: 06/13/25 01:48 Dose: 0.5 mg Documented By: CATRACHITA Ceftriaxone Sodium 1 gm/ (Sodium Chloride) 50 mls @ 100 mls/hr IV Q24H [facility] Last Infusion: 06/13/25 08:40 Dose: Infused Documented By: UMANG Magnesium Hydroxide (Milk Of Magnesia 30 Ml Oral.Susp) 30 ml PO DAILY PRN PRN Reason: Constipation Melatonin (Melatonin 3 Mg Tablet) 6 mg PO BEDTIME PRN PRN Reason: Insomnia Ondansetron HCl (Ondansetron Hcl 4 Mg/2 Ml Vial) 4 mg IVPUSH Q6H PRN PRN Reason: Nausea Last Admin: 06/12/25 15:38 Dose: 4 mg Documented By: UMANG Sodium Chloride (0.9 % Sodium Chloride Flush 3 Ml Syringe) 3 ml IVFLUSH QSHIFT [facility] Last Admin: 06/13/25 21:41 Dose: 3 ml Documented By: RENETTA Tamsulosin HCl (Tamsulosin Hcl 0.4 Mg Capsule) 0.4 mg PO DAILY [facility] Last Admin: 06/13/25 08:08 Dose: 0.4 mg Documented By: UMANG Labs 06/13/25 05:52 06/13/25 05:52 Microbiology Microbiology Results: Microbiology 06/11/25 07:54 Blood Culture - Preliminary Blood - Venous No growth after 48 hours. 06/11/25 07:42 Blood Culture - Preliminary Blood - Venous No growth after 48 hours. Assessment and Plan (1) Left flank pain: Status: Acute Plan 69F PMH COPD, ?cirrhosis, alcohol dependence reports remission, presented with left flank pain Obstructing left ureteral stone with hydronephrosis IV fluids, ceftriaxone, planning cysto today, pain control Acute hypoxia complicated by acute lactic acidosis Due to albuterol and hypoxia and not sepsis ? 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 due to history of etoh dependence in remisison viral hepatitis negative DVT prophylaxis - lovenox Full code reason for continued hospitalization:cysto Quality Stroke Does the patient have a stroke diagnosis?: No VTE Prior VTE?: No VTE Risk Level:: Medical - moderate - high VTE Device Contraindication: Treatment Not Indicated VTE Drug Contraindication: N/A - Med Ordered
[2025-06-14] MEDS: 0.9 % Sodium Chloride Flush 3 ML SYRINGE IVFLUSH ×2 (08:19→21:44)
--- NOTE | 2025-06-14 08:52 | P.CONAN_ITS ---
Documented by User: Atiya Harris NP 06/14/25 09:13 HPI - Anesthesia Eval Consult details Narrative: 69 yr old female for left cystoscopy, retrograde with stent placement Denies recent illness; No CP, occasional SOB with cleaning, yardwork, sits and rests then resumes. Reports having palpitations since was 16 yrs ago, has never seen cardiology. No dizziness. Low platelets: 79 on 06/13/25; pt reports being told this years and years ago . COPD, current smoker: On 2 liters O2, sats are low 90s; chest CT results below showing effusions PMFSH Active Problems Active Problems: All Active Problems UTI (urinary tract infection) (Acute) Lung mass (Acute) Acute bronchospasm (Acute) Hypoxia (Acute) Acidosis, lactic (Acute) Left flank pain (Acute) Intractable nausea and vomiting (Acute) Ureterolithiasis (Acute) Past Medical History Medical History (Updated 06/14/25 @ 14:53 by Pratibha Austin, RN) COPD (chronic obstructive pulmonary disease) Collapsed lung UTI (urinary tract infection) Kidney stones Family History Family history of problems with anesthesia: No Surgical History Surgical History (Updated 06/14/25 @ 14:45 by Pratibha Austin RN) Hx of tonsillectomy History of Problems with Anesthesia: No Social History Social History Household Members: Spouse Housing: House Do you presently have visiting nurse or other home services: No Patient Tobacco Use Status: Current everyday Tobacco user Tobacco use type: Cigarette Cigarette Packs Per Day: 10 Cigarettes Per Day: 10 Advance Directives Date on File: 06/11/25 service: No Meds Allergies Allergy/AdvReac Type Severity Reaction Status Date / Time codeine (CODEINE) Allergy Unknown UNKNOWN Verified 06/11/25 07:27 nitroglycerin (NITROGLYCERIN) Allergy Unknown TACHYCARDIA Verified 06/11/25 07:27 Active Medications: Current Medications Acetaminophen (Acetaminophen 325 Mg Tablet) 650 mg PO Q6H PRN PRN Reason: Pain, Mild 1-3,fever,headache Albuterol/Ipratropium (Albuterol/Iprat 2.5/0.5mg 3 Ml Ampul.Neb) 3 ml INHALE RQ4H WHILE AWAKE PRN PRN Reason: sob Calcium Carbonate (Calcium Carbonate 750 Mg Tab.Chew) 750 mg PO Q4H PRN PRN Reason: Heartburn Enoxaparin Sodium (Enoxaparin Sodium 40 Mg/0.4 Ml Syringe) 40 mg SUBCUT Q24H [facility] Last Admin: 06/13/25 15:02 Dose: Not Given Hydromorphone HCl (Hydromorphone Hcl 0.5 Mg/0.5 Ml Syringe) 0.5 mg IVPUSH Q3H PRN; Protocol PRN Reason: Pain, Severe (Pain Scale 7-10) Last Admin: 06/13/25 01:48 Dose: 0.5 mg Ceftriaxone Sodium 1 gm/ (Sodium Chloride) 50 mls @ 100 mls/hr IV Q24H [facility] [place] Last Admin: 06/14/25 08:19 Dose: 100 mls/hr Magnesium Hydroxide (Milk Of Magnesia 30 Ml Oral.Susp) 30 ml PO DAILY PRN PRN Reason: Constipation Melatonin (Melatonin 3 Mg Tablet) 6 mg PO BEDTIME PRN PRN Reason: Insomnia Ondansetron HCl (Ondansetron Hcl 4 Mg/2 Ml Vial) 4 mg IVPUSH Q6H PRN PRN Reason: Nausea Last Admin: 06/12/25 15:38 Dose: 4 mg Sodium Chloride (0.9 % Sodium Chloride Flush 3 Ml Syringe) 3 ml IVFLUSH QSHIFT [facility] [place] Last Admin: 06/14/25 08:19 Dose: 3 ml Tamsulosin HCl (Tamsulosin Hcl 0.4 Mg Capsule) 0.4 mg PO DAILY [facility] [place] Last Admin: 06/14/25 08:19 Dose: 0.4 mg Home Medications ?Medication ?Instructions ?Recorded ?Confirmed ?Last Taken ?Type ibuprofen 200 mg tablet 200 mg PO Q6H PRN Migraine H eadache 06/11/25 06/11/25 06/10/25 History Exam Height,Weight and Vital Signs: Height 5 ft 4 in Weight 42.5 kg Last Vital Signs Temp 97.4 F 06/14/25 07:26 Pulse 114 H 06/14/25 07:26 Resp 16 06/14/25 07:26 BP 102/54 L 06/14/25 07:26 Pulse Ox 92 06/14/25 07:26 O2 Del Method Nasal Cannula 06/14/25 07:26 O2 Flow Rate 2 06/14/25 07:26 Pertinent Lab Results Pertinent Lab Results: Laboratory Tests 06/11/25 06/11/25 06/11/25 07:42 07:54 10:09 WBC 8.0 RBC 4.23 Hgb 13.1 Hct 39.4 MCV 93.1 MCH 31.0 MCHC 33.2 RDW 13.3 Plt Count 118 L MPV 10.9 Immature Gran % (Auto) 0.6 H Neut % (Auto) 84.4 H Lymph % (Auto) 8.3 L [place] % (Auto) 6.6 Eos % (Auto) 0.0 Baso % (Auto) 0.1 Lymph # (Auto) 0.7 L [place] # (Auto) 0.5 Eos # (Auto) 0.0 Baso # (Auto) 0.0 Abs Immat Gran (auto) 0.05 H Absolute Neuts (auto) 6.7 Absolute Nucleated RBC 0.000 Nucleated RBC % (auto) 0.0 PT INR VBG pH VBG pCO2 VBG pO2 VBG HCO3 VBG O2 Saturation VBG Base Excess Sodium 140 Potassium 4.3 Chloride 107 Carbon Dioxide 21 L Anion Gap 16 BUN 20 H Creatinine 1.16 Estim Creat Clear Calc 27.5 Estimated GFR 46 Random Glucose 125 H Lactic Acid 2.9 H* Lactic Acid F/U @ 2Hr 7.6 H* Calcium 9.4 Magnesium 1.7 Iron TIBC % Saturation Unsat Iron Binding Total Bilirubin 1.8 H Direct Bilirubin AST 27 ALT < 6 Alkaline Phosphatase 115 Total Protein 6.4 L Albumin 4.0 Urine Color Urine Appearance Urine pH Ur Specific [place] Urine Protein Urine Glucose (UA) Urine Ketones Urine Blood Urine Nitrite Ur Leukocyte Esterase Urine RBC Urine WBC Ur Squamous Epith Cells Calcium Oxalate Crystal Urine Bacteria Hyaline Casts Hep Bs Antigen Hep Bs Antibody Hep B Core Total Ab Hepatitis C Ab (EIA) 06/11/25 06/11/25 06/11/25 10:52 11:08 12:37 WBC RBC Hgb Hct MCV MCH MCHC RDW Plt Count MPV Immature Gran % (Auto) Neut % (Auto) Lymph % (Auto) [place] % (Auto) Eos % (Auto) Baso % (Auto) Lymph # (Auto) [place] # (Auto) Eos # (Auto) Baso # (Auto) Abs Immat Gran (auto) Absolute Neuts (auto) Absolute Nucleated RBC Nucleated RBC % (auto) PT INR VBG pH VBG pCO2 VBG pO2 VBG HCO3 VBG O2 Saturation VBG Base Excess Sodium Potassium Chloride Carbon Dioxide Anion Gap BUN Creatinine Estim Creat Clear Calc Estimated GFR Random Glucose Lactic Acid 5.3 H* 3.6 H* Lactic Acid F/U @ 2Hr Calcium Magnesium Iron TIBC % Saturation Unsat Iron Binding Total Bilirubin Direct Bilirubin AST ALT Alkaline Phosphatase Total Protein Albumin Urine Color [place] Urine Appearance Cloudy Urine pH 5.0 Ur Specific [place] >= 1.030 H Urine Protein See Note Urine Glucose (UA) See Note Urine Ketones See Note Urine Blood Large (3+) H Urine Nitrite See Note Ur Leukocyte Esterase Trace H Urine RBC >20 H Urine WBC 6-10 H Ur Squamous Epith Cells 3-5 Calcium Oxalate Crystal Present Urine Bacteria None Seen Hyaline Casts 6-10 Hep Bs Antigen Hep Bs Antibody Hep B Core Total Ab Hepatitis C Ab (EIA) 06/11/25 06/12/25 06/13/25 12:43 06:09 05:52 WBC 6.6 5.9 RBC 3.75 L 3.73 L Hgb 11.4 L 11.5 L Hct 36.1 L 36.1 L MCV 96.3 96.8 MCH 30.4 30.8 MCHC 31.6 31.9 RDW 13.4 13.1 Plt Count 72 L D 79 L MPV 12.0 11.2 Immature Gran % (Auto) Neut % (Auto) Lymph % (Auto) [place] % (Auto) Eos % (Auto) Baso % (Auto) Lymph # (Auto) [place] # (Auto) Eos # (Auto) Baso # (Auto) Abs Immat Gran (auto) Absolute Neuts (auto) Absolute Nucleated RBC 0.000 0.000 Nucleated RBC % (auto) 0.0 0.0 PT 11.9 INR 1.0 VBG pH 7.40 VBG pCO2 35 VBG pO2 84 VBG HCO3 22 VBG O2 Saturation 98.0 VBG Base Excess -1.5 Sodium 142 140 Potassium 5.2 H D 3.8 D Chloride 108 105 Carbon Dioxide 27 27 Anion Gap 12 12 BUN 20 H 20 H Creatinine 0.73 0.69 Estim Creat Clear Calc 47.3 50.2 Estimated GFR > 60 > 60 Random Glucose 90 99 Lactic Acid Lactic Acid F/U @ 2Hr Calcium 9.0 9.0 Magnesium 1.7 Iron 45 TIBC 169 L % Saturation 27 Unsat Iron Binding 124 Total Bilirubin 0.9 Direct Bilirubin 0.4 AST 29 ALT < 6 Alkaline Phosphatase 83 Total Protein 5.1 L Albumin 3.2 L Urine Color Urine Appearance Urine pH Ur Specific [place] Urine Protein Urine Glucose (UA) Urine Ketones Urine Blood Urine Nitrite Ur Leukocyte Esterase Urine RBC Urine WBC Ur Squamous Epith Cells Calcium Oxalate Crystal Urine Bacteria Hyaline Casts Hep Bs Antigen Negative Hep Bs Antibody NONREACTIVE Hep B Core Total Ab Nonreactive Hepatitis C Ab (EIA) Nonreactive Narrative Narrative: EKG 06/11/25 Vent. Rate : 97 BPM Atrial Rate : 97 BPM P-R Int : 184 ms QRS Dur : 74 ms QT Int : 364 ms P-R-T Axes : 88 95 68 degrees QTcB Int : 462 ms Normal sinus rhythm with sinus arrhythmia Right atrial enlargement Rightward axis Anterior infarct (cited on or before 15-Mar-2016) Abnormal ECG When compared with ECG of 09-Jun-2025 16:50, Premature supraventricular complexes are no longer Present CHEST CT 05/2025 IMPRESSION: There is an irregular area of pleural thickening in the right apex measuring up to 1.8 cm thick. It demonstrates heterogeneous low density with spiculated margins. While this could represent loculated fluid or benign pleural thickening, a more aggressive etiology is not excluded given the overall thickness, invagination into apical fat, and spiculations in the adjacent lung. Moderate emphysema. Small layering bilateral pleural effusions. Cholelithiasis. Nephrolithiasis: There is a 2 mm nonobstructing stone in the left kidney. Osteopenia with age-indeterminate compression fractures at the thoracolumbar junction. Airway TM Dist: >3cm Neck ROM: Full Heart: RRR Lungs: diminished b/l Assessment and Plan Final Anesthetic Review Family History of Problems with Anesthesia: No History of Problems with Anesthesia: No Documented by User: Cortney Gold MD 06/14/25 15:01 [facility] Past Medical History Medical History (Updated 06/14/25 @ 14:53 by Pratibha Austin RN) COPD (chronic obstructive pulmonary disease) Collapsed lung UTI (urinary tract infection) Kidney stones Surgical History Surgical History (Updated 06/14/25 @ 14:45 by Pratibha Austin RN) Hx of tonsillectomy Social History Social History Household Members: Spouse Housing: House Do you presently have visiting nurse or other home services: No Patient Tobacco Use Status: Current everyday Tobacco user Tobacco use type: Cigarette Cigarette Packs Per Day: 10 Cigarettes Per Day: 10 Advance Directives Date on File: 06/11/25 service: No Meds Allergies Allergy/AdvReac Type Severity Reaction Status Date / Time codeine (CODEINE) Allergy Unknown UNKNOWN Verified 06/11/25 07:27 nitroglycerin (NITROGLYCERIN) Allergy Unknown TACHYCARDIA Verified 06/11/25 07:27 Home Medications ?Medication ?Instructions ?Recorded ?Confirmed ?Last Taken ?Type ibuprofen 200 mg tablet 200 mg PO Q6H PRN Migraine H eadache 06/11/25 06/11/25 06/10/25 History Exam Airway Mallampati Class: II Assessment and Plan Assessment Anesthesia Assessment: Anesthesia Plan Discussed and Chart Reviewed Final Anesthetic Review NPO: Yes ASA Class: III Final Preanesthetic Review: No Changes in Pt Med Stat, Meds/Allgs Chart Reviewed and Consent Obtained/Reviewed Patient Risk: Intermediate Procedure Risk: Low Anesthetic Plan Anesthetic Plan: GA Disposition: Standard PACU
--- NOTE | 2025-06-14 10:23 | MHC.CM.PN ---
Per MD rounds patient not medically cleared for dc. CM will continue to follow.
--- NOTE | 2025-06-14 12:07 | MHC.CLN ---
PT IS MODERATELY MALNOURISHED-QUALIFIES FOR NONSEVERE MALNUTRITION IN CONTEXT OF ACUTE ILLNESS PT WITH MILDLY DEPLETED SUBCUTANEOUS FAT AND MUSCLE MASS WITH CHRONIC POOR PO INTAKE R/T ACUTE ILLNESS PT WITHOUT PREVIOUS WT HX AVAILABLE CURRENTLY NPO WHEN DIET TO ADVANCE, RECOMMEND ADDING ENSURE BID TO INCREASE KCALS SUPP TO PROVIDE 700KCALS, 40G PROTEIN FOLLOWING FOR DIET ADVANCEMENT SEE FULL ASSESSMENT
[2025-06-14] MEDS: Lactated Ringers 1,000 ML 50 ML IVCONT ×2 (14:58→21:46)
--- NOTE | 2025-06-14 18:29 | MHC.SHP ---
Pre-Procedural Eval Section A - 24 Hr Update-Section A only Date of Service: 06/14/25 The patient is an INPATIENT: Yes Changes since office visit: No Cold of Flu in the past 2 weeks, No New Medical Problems, No Changes in Medication and No Patient answered all questions The patient has been examined within 24 hours of the surgical procedure. The History & Physical has been completed within 30 days and I have reviewed it.: Yes Section B - Complete if H&P > 30 days Chief Complaint: kidney stone, hypoxia Details of Present Illness: Cystoscopy, left retrograde, left stent placement Allergies: Allergies Allergy/AdvReac Type Severity Reaction Status Date / Time codeine (CODEINE) Allergy Unknown UNKNOWN Verified 06/11/25 07:27 nitroglycerin (NITROGLYCERIN) Allergy Unknown TACHYCARDIA Verified 06/11/25 07:27 Review of Systems Sugical H&P ROS: Negative: Constitution, Cardiovascular, Respiratory, Neurological, Psychiatric, Hem-Onc, Allergic/Immunologic, Gastrointestinal, Genitourinary, Musculoskeletal, Integumentary, Endocrine and Eyes/Ears/Nose/Throat Exam Surgical H&P Exam: Normal: HEENT, Normal: Heart, Normal: Lungs, Normal: Extremities, Normal: Abdomen, Normal: Skin and Normal: Neurological Plan Diagnosis/Plan: Unchanged I have reviewed the history and physical and performed a pertinent physical examination on my patient. No changes have occurred unless specified. Time Spent With Patient Time: Total time managing care of this patient today ____ minutes.
--- NOTE | 2025-06-14 19:16 | W.PM.OPN ---
Operative Note Operative Note Date of Service: 06/14/25 Narrative: PreOperative Diagnosis: Left proximal ureteric stone Post Operative Diagnosis: Left proximal ureteric stone Procedure: Cystoscopy, left retrograde, left stent placement Surgeon: Dr Roberto Noland Anesthesia: LMA Indications for procedure: Presentation through emergency department with left flank pain. Imaging showed 3 mm left proximal ureteric stone Procedure: After informed consent was verified the patient was brought to the operating room and placed in a supine position. Anesthesia was administered per protocol. The patient was placed in modified dorsal lithotomy position and prepped and draped in a sterile fashion. A safety pause time-out was performed. Laterality of procedure and antibiotics were confirmed, appropriate imaging was available A 22 [place] cystoscope was introduced per urethra. No abnormality was noted of urethra or bladder. Both ureteric orifices were seen in a normal position. The left ureter was cannulated with an open ended catheter and a retrograde examination was performed. Appeared to have duplex system with high insertion. A Sensor guidewire was placed under fluoroscopy and we were unable to guide this into the renal pelvis secondary to distortion of the ureter. The sensor guidewire was removed. An angled Glidewire was placed and able to be advanced through renal pelvis. A 4 [place] open-ended catheter was advanced over the angled Glidewire into the renal pelvis. The Glidewire was exchanged for the sensor wire. A 6 [place] by 24 cm double J stent was advanced over the wire and up to the level of the renal pelvis under fluoroscopic and direct visualization. The stent was seen with appropriate coil within the renal pelvis and in the bladder after deployment. The patient tolerated the procedure well and was transferred in a stable condition to the recovery area. Pathology: Drains: As above
[2025-06-15] VITALS (7 sets, daily range): BP systolic 110–126; BP diastolic 53–66; PULSE 56–107; RESP 16–19; TEMP 35.9–36.4; O2SAT 85–93
[2025-06-15 07:28] LABS: Hematocrit 36.3 % (37.0-47.0); Hemoglobin 11.9 g/dl (12.0-16.0); Mean Corpuscular HGB Conc 32.8 g/dl (31.0-35.0); Mean Corpuscular Hemoglobin 31.2 pg (27.0-33.0); Mean Corpuscular Volume 95.3 fL (80.0-98.0); NRBC Abs Auto 0.000 X10*3/uL (0.0-0.012); NRBC Pct Auto 0.0 /100WBC (0.0-0.2); Platelet Count 108 X10*3/uL (160-400); Red Blood Count 3.81 X10*6/uL (4.20-5.50); White Blood Count 6.6 X10*3/uL (4.8-10.8)
[2025-06-15 07:32] LABS: Alanine Aminotransferase < 6 U/L (0-31); Albumin Level 2.8 g/dL (3.5-5.0); Alkaline Phosphatase 79 U/L (39-117); Anion Gap 11 (12-20); Aspartate Amino Transferase 23 U/L (5-31); Blood Urea Nitrogen 14 mg/dL (9-16); Calcium 8.6 mg/dL (8.4-10.2); Carbon Dioxide 31 mmol/L (22-29); Chloride 103 mmol/L (96-108); Creatinine Clr Calc Pharmacy 54.1; Estimated Glomerular Filt Rate > 60; Magnesium 1.3 mg/dL (1.6-2.6); Potassium 3.8 mmol/L (3.3-5.1); Sodium 141 mmol/L (135-145); Total Protein 4.8 g/dL (6.5-8.0)
[2025-06-15] MEDS: Magnesium Sulfate/H2O 2 GM/50 ML PIGGYBACK IV (08:04)
--- NOTE | 2025-06-15 08:55 | P.PNIM_ITS ---
Subjective Subjective Date of Service: 06/15/25 Interval History: pain resolved, feeling weak Physical Exam 2 Exam: Exam: General: AO X 3, frail and cachectic Resp: Diminished bilateral, no accessory muscles used CVS: S1,S2, rapid regular GI: soft, non tender, non distended Neuro: motor grossly intact, alert Psych: appropriate affect, appropriate insight Vital Signs: Vital Signs: Last Vital Signs Temp 97.0 F 06/15/25 07:42 Pulse 96 06/15/25 07:42 Resp 16 06/15/25 07:42 BP 121/66 06/15/25 07:42 Pulse Ox 91 L 06/15/25 07:42 O2 Del Method Nasal Cannula 06/15/25 07:42 O2 Flow Rate 2.0 06/15/25 07:42 BMI result Body Mass Index 16.1 Const: General: cooperative, healthy appearing, comfortable and no acute distress Orientation/consciousness: patient oriented x3 HEENT: Face and sinus: Yes normal facial exam Mouth: moist mucous membranes Neck: Neck: Yes normal visual inspection, Yes full ROM and Yes trachea midline Chest: Chest palpation & inspection: normal inspection of the chest Resp: Effort & Inspection: normal respiratory effort, able to speak in complete sentences and no respiratory distress GI: Inspection: Yes normal to inspection Back/Spine/Pelvis: Cervical Spine: normal cervical lordosis Thoracic/Lumbar Spine: thoracic and lumbar spine normal to inspection Skin: General skin exam: no rashes or lesions noted Neuro: General: patient oriented x3, tone normal and moves all extremities Extrem: General: Yes normal to inspection and Yes capillary refill normal Objective Data Active Medications Acetaminophen (Acetaminophen 325 Mg Tablet) 650 mg PO Q6H PRN PRN Reason: Pain, Mild 1-3,fever,headache Albuterol/Ipratropium (Albuterol/Iprat 2.5/0.5mg 3 Ml Ampul.Neb) 3 ml INHALE RQ4H WHILE AWAKE PRN PRN Reason: sob Calcium Carbonate (Calcium Carbonate 750 Mg Tab.Chew) 750 mg PO Q4H PRN PRN Reason: Heartburn Enoxaparin Sodium (Enoxaparin Sodium 40 Mg/0.4 Ml Syringe) 40 mg SUBCUT Q24H [facility] Last Admin: 06/14/25 16:02 Dose: Not Given Documented By: ANKUR Non-Admin Reason: Off Unit: Surgery Hydromorphone HCl (Hydromorphone Hcl 0.5 Mg/0.5 Ml Syringe) 0.5 mg IVPUSH Q3H PRN; Protocol PRN Reason: Pain, Severe (Pain Scale 7-10) Last Admin: 06/15/25 06:04 Dose: 0.5 mg Documented By: RENETTA Ceftriaxone Sodium 1 gm/ (Sodium Chloride) 50 mls @ 100 mls/hr IV Q24H [facility] Last Admin: 06/15/25 08:29 Dose: 100 mls/hr Documented By: YAMILETH Lactated Ringer's (Lr) 1,000 mls @ 50 mls/hr IVCONT .Q20H [facility] Last Infusion: 06/15/25 08:28 Dose: 50 mls/hr Documented By: YAMILETH Magnesium Sulfate (Magnesium Sulfate/H2o) 2 gm in 50 mls @ 25 mls/hr IV ONCE ONE Stop: 06/15/25 09:30 Last Infusion: 06/15/25 08:29 Dose: 25 mls/hr Documented By: YAMILETH Magnesium Hydroxide (Milk Of Magnesia 30 Ml Oral.Susp) 30 ml PO DAILY PRN PRN Reason: Constipation Magnesium Oxide (Magnesium Oxide 400 Mg Tablet) [facility] Last Admin: 06/15/25 08:11 Dose: 800 mg Documented By: YAMILETH Melatonin (Melatonin 3 Mg Tablet) 6 mg PO BEDTIME PRN PRN Reason: Insomnia Naloxone HCl (Naloxone Hcl 0.4 Mg/Ml Vial) 0.04 mg IVPUSH Q5M PRN PRN Reason: Excessive sedation or RR < 8 Ondansetron HCl (Ondansetron Hcl 4 Mg/2 Ml Vial) 4 mg IVPUSH Q6H PRN PRN Reason: Nausea Last Admin: 06/12/25 15:38 Dose: 4 mg Documented By: UMANG Oxycodone HCl (Oxycodone Hcl Immed Release 5 Mg Tablet) 5 mg PO Q4H PRN PRN Reason: Pain, Mild (Pain Scale 1-3) Sodium Chloride (0.9 % Sodium Chloride Flush 3 Ml Syringe) 3 ml IVFLUSH QSHIFT [facility] Last Admin: 06/15/25 08:08 Dose: Not Given Documented By: YAMILETH Non-Admin Reason: IV Running Tamsulosin HCl (Tamsulosin Hcl 0.4 Mg Capsule) 0.4 mg PO DAILY [facility] Last Admin: 06/15/25 08:11 Dose: 0.4 mg Documented By: YAMILETH Labs 06/15/25 06:39 06/15/25 06:39 Labs: Laboratory Results - last 24 hr 06/15/25 06:39 MCV 95.3 MCH 31.2 MCHC 32.8 RDW 13.3 Plt Count 108 L D MPV 11.4 Absolute Nucleated RBC 0.000 Nucleated RBC % (auto) 0.0 Anion Gap 11 L Estim Creat Clear Calc 54.1 Estimated GFR > 60 Random Glucose 109 Calcium 8.6 Magnesium 1.3 L* Total Bilirubin 1.0 Direct Bilirubin 0.5 AST 23 ALT < 6 Alkaline Phosphatase 79 Total Protein 4.8 L Albumin 2.8 L TSH 1.03 Assessment and Plan (1) Left flank pain: Status: Acute Plan 69F PMH COPD, ?cirrhosis, alcohol dependence reports remission, presented with left flank pain Obstructing left ureteral stone with hydronephrosis ceftriaxone, s/p cysto/stent 06/14/25 cultures negative Acute hypoxia complicated by acute lactic acidosis Due to albuterol and hypoxia and not sepsis ? 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 due to history of etoh dependence in remisison viral hepatitis negative acute symptomatic hypomagnesemia replace and monitor DVT prophylaxis - lovenox Full code [facility] for continued [facility] Quality Stroke Does the patient have a stroke diagnosis?: No VTE Prior VTE?: No VTE Risk Level:: Medical - moderate - high VTE Device Contraindication: Treatment Not Indicated VTE Drug Contraindication: N/A - Med Ordered
--- NOTE | 2025-06-15 08:59 | PM.DS ---
DS: Providers Provider Date of Service: 06/15/25 Date of admission: 06/11/25 13:29 Date of discharge: 06/15/25 Primary care physician: Atif Desai MD Consults: 06/11/25 13:50 Consult to Urology Routine Consulting Provider: [facility] Reason for consultation: obstructing stone DS: Diagnosis Discharge Diagnosis (1) Left flank pain: Status: Acute DS: Summary Hospital Course Hospital Course: from initial hpi: 69F PMH COPD, etoh? cirrhosis, alcohol dependence reports remission, presented with left flank pain. Patient was in ED on 06/09/2025 found to have obstructing 3 mm stone was discharged on Flomax and Ceftin. Subsequently continued to have significant left-sided flank pain so returned to ED. Denies fever or chills. Denies gross hematuria. Denies history of nephrolithiasis. In ED found to have 3 mm obstructing left ureteral stone with mild left hydronephrosis unchanged. 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 Noted to be hypoxic in ED down to 85% on room air with lactic acid of 7. Denies shortness breath hospital course: She was admitted for obstructing left ureteral stone with hydronephrosis. Was given ceftriaxone and underwent cystoscopy with stent placement on 06/14/2025 with relief of pain. Cultures were negative. On discharge we will continue Ceftin for 5 more days and follow up with Urology. For acute hypoxia likely due to COPD with bronchospasm which quickly resolved. Patient was persistently hypoxic likely chronic hypoxia due to COPD. For acute lactic acidosis not due to sepsis but albuterol and hypoxia in the setting of liver cirrhosis. Patient noted to have chronic right apical scarring present from at least imaging in 2019. Also noted to have cirrhosis with chronic thrombocytopenia unclear etiology, viral hepatitis panel negative, possibly due to history of alcohol dependence in remission. For moderate protein calorie malnutrition increase p.o. intake is recommended. For acute symptomatic hypomagnesemia received replacement and symptoms improved. Patient is feeling better was seen by PT who recommended STR to which she will be discharged. she is expected to require less than 30 days. Time Attestation Discharge Coordination Time (in mins): 34 Quality: Safe Use of Opioids Does Pt have an Active Cancer Diagnosis on the Problem List?: No Quality: Stroke Does the patient have a stroke diagnosis?: No Physical Exam Exam: Exam: General: AO X 3, frail and cachectic Resp: Diminished bilateral, no accessory muscles used CVS: S1,S2, rapid regular GI: soft, non tender, non distended Neuro: motor grossly intact, alert Psych: appropriate affect, appropriate insight Vital Signs: Vital Signs: Last Vital Signs Temp 97.0 F 06/15/25 07:42 Pulse 96 06/15/25 07:42 Resp 16 06/15/25 07:42 BP 121/66 06/15/25 07:42 Pulse Ox 91 L 06/15/25 07:42 O2 Del Method Nasal Cannula 06/15/25 07:42 O2 Flow Rate 2.0 06/15/25 07:42 BMI result Body Mass Index 16.1 Const: General: cooperative, healthy appearing, comfortable and no acute distress Orientation/consciousness: patient oriented x3 HEENT: Face and sinus: Yes normal facial exam Mouth: moist mucous membranes Neck: Neck: Yes normal visual inspection, Yes full ROM and Yes trachea midline Chest: Chest palpation & inspection: normal inspection of the chest Resp: Effort & Inspection: normal respiratory effort, able to speak in complete sentences and no respiratory distress GI: Inspection: Yes normal to inspection Back/Spine/Pelvis: Cervical Spine: normal cervical lordosis Thoracic/Lumbar Spine: thoracic and lumbar spine normal to inspection Skin: General skin exam: no rashes or lesions noted Neuro: General: patient oriented x3, tone normal and moves all extremities Extrem: General: Yes normal to inspection and Yes capillary refill normal DS: Data Data Completed and Pending Labs on day of discharge: Laboratory Results - last 24 hr 06/15/25 06:39 WBC 6.6 RBC 3.81 L Hgb 11.9 L Hct 36.3 L MCV 95.3 MCH 31.2 MCHC 32.8 RDW 13.3 Plt Count 108 L D MPV 11.4 Absolute Nucleated RBC 0.000 Nucleated RBC % (auto) 0.0 Sodium 141 Potassium 3.8 Chloride 103 Carbon Dioxide 31 H Anion Gap 11 L BUN 14 Creatinine 0.64 Estim Creat Clear Calc 54.1 Estimated GFR > 60 Random Glucose 109 Calcium 8.6 Magnesium 1.3 L* Total Bilirubin 1.0 Direct Bilirubin 0.5 AST 23 ALT < 6 Alkaline Phosphatase 79 Total Protein 4.8 L Albumin 2.8 L TSH 1.03 Preliminary micro results at discharge 06/11/25 07:54 Blood Culture - Preliminary Blood - Venous No growth after 48 hours. 06/11/25 07:42 Blood Culture - Preliminary Blood - Venous No growth after 48 hours. Discharge Plan Discharge Anticipated Discharge Date/Time: 06/15/25 08:57 Patient Disposition: Xfer SNF Discharge Diagnosis: stone Referrals: Roberto Noland MD [Physician, Urology] - 1 Week Atif Desai MD [Primary Care Provider, Internal Medicine] - 1 Week Discharge Medications: Continued oxycodone 5 mg tablet 2.5 mg PO Q8H PRN (Reason: pain (scale score 7-10)) Qty: 5 0RF Rx Instructions: Partial Fill upon patient request. ibuprofen 200 mg Tablet 200 mg PO Q6H PRN (Reason: Migraine Headache) cefuroxime axetil 500 mg tablet 500 mg PO Q12H Qty: 10 0RF Discontinued tamsulosin 0.4 mg capsule 0.4 mg PO DAILY Qty: 7 0RF Discharge Orders: Discharge Order (Routine); Ordered 06/15/25 Ordered By: Nico Jj Diet: Advance to usual diet Activity on Discharge: As tolerated Stand Alone Forms: Patient Portal Discharge page Print Language: Italian Care Plan Goals: recovery Health Concerns: copd, cirrhosis, kidney stone Plan of Treatment: complete abx, o2 as directed, stop smoking, follow up with urology Assessment: see above
--- NOTE | 2025-06-15 09:36 | HO.POSTANES ---
Post Anesthesia Evaluation Post Anesthesia Evaluation Date of Service: 06/15/25 Vital Signs: Vital Signs Temp Pulse Resp BP Pulse Ox O2 Del Method O2 Flow Rate 06/15/25 09:04 98 126/58 L 91 L Nasal Cannula 2 06/15/25 07:42 97.0 F 96 16 121/66 91 L Nasal Cannula 2.0 06/15/25 02:47 96.9 F 56 17 112/55 L 93 Nasal Cannula 2 06/14/25 23:22 96.8 F 99 17 100/57 L 93 Nasal Cannula 2 Anesthesia: General Mental Status: Awake Pain Control: Satisfactory Nausea/Vomiting: None Hydration: Adequate Anesthesia-Related Issues: No Anes. Related Issues
[2025-06-15 12:29] LABS: D Dimer High Sensitivity 427 NG/ML
[2025-06-15 12:38] LABS: Magnesium 2.1 mg/dL (1.6-2.6)
--- NOTE | 2025-06-15 13:45 | MHC.CM.PN ---
Patient medically cleared for dc. PT rec STR. Patient has accepted a bed at [facility]. BLS transport scheduled for 430pm. , RN and patient aware. IMM delivered. Patient completed HCP naming her , Tariq, as [facility].
--- NOTE | 2025-06-15 14:35 | PC.NURSE ---
Last reported void was 06:00, patient bladder scanned 118cc, up to bedside commode to void. 100cc bloody urine noted, post void 30cc. Provider Анна notified via tigerconnect of low urine output.
[2025-06-15] MEDS: oxyCODONE HCl Immed Release 5 MG TABLET PO (17:35)
== END 2025-06-15 17:51 | disposition skilled nursing facility (03) | DRG 660 ==
LOC: HO.ED 13:25 → HO.EDOVER 13:42 → HO.S3 14:57
PROVIDERS: Urology; Admitting Provider Internal Medicine; Emergency Provider Emergency Medicine; PCP Internal Medicine; Visit Provider Internal Medicine
PROC: 0T778DZ Dilation of Left Ureter with Intraluminal Device, Via Natural or Artificial Opening Endoscopic (ICD-10-PCS; principal; 2025-06-14 17:20)
DX: N13.2 Hydronephrosis with renal and ureteral calculous obstruction (principal); E44.0 Moderate protein-calorie malnutrition; Z68.1 Body mass index [BMI] 19.9 or less, adult; E87.21 Acute metabolic acidosis; K70.30 Alcoholic cirrhosis of liver without ascites; R09.02 Hypoxemia; D69.6 Thrombocytopenia, unspecified; E83.42 Hypomagnesemia; J44.9 Chronic obstructive pulmonary disease, unspecified; F11.21 Opioid dependence, in remission; F17.210 Nicotine dependence, cigarettes, uncomplicated; Z71.6 Tobacco abuse counseling; Z79.899 Other long term (current) drug therapy
CPT/HCPCS: 36415; 71045; 71250; 74176; 80048; 80053; 80076; 81001; 82803; 83540; 83605; 83735; 84443; 85025; 85027; 85379; 85610; 86704; 86706; 86803; 87040; 87086; 87340; 93005; 94640; 97162; 99285; C1758; C1769; C2617; J0131; J0696; J0737; J1171; J1650; J1885; J1956; J2003; J2405; J2704; J3010; J3475; J7120; Q9967

== ENCOUNTER → 2025-06-11 07:29 | Outpatient (BNV) | payer MEDICARE, SELFPAY | PROVIDERS: Emergency Provider Emergency Medicine; PCP Internal Medicine; Visit Provider Radiology Diagnostic Radiology | DX: N13.2 Hydronephrosis with renal and ureteral calculous obstruction (principal); R09.02 Hypoxemia | CPT/HCPCS: 71045; 74176 ==

== ENCOUNTER → 2025-06-11 07:52 | Outpatient (BNV) | payer MEDICARE, SELFPAY | PROVIDERS: Emergency Provider Emergency Medicine; PCP Internal Medicine; Visit Provider Internal Medicine Cardiovascular Disease | DX: I49.3 Ventricular premature depolarization (principal); R00.0 Tachycardia, unspecified | CPT/HCPCS: 93010 ==

== ENCOUNTER → 2025-06-11 13:29 | Outpatient (BNV) | payer MEDICARE, SELFPAY | PROVIDERS: Admitting Provider Internal Medicine; Emergency Provider Emergency Medicine; PCP Internal Medicine; Visit Provider Urology | DX: N20.1 Calculus of ureter (principal); E87.20 Acidosis, unspecified; R10.9 Unspecified abdominal pain; N30.01 Acute cystitis with hematuria | CPT/HCPCS: 99222 ==

== ENCOUNTER → 2025-06-11 13:29 | Outpatient (BNV) | payer MEDICARE, SELFPAY | PROVIDERS: Admitting Provider Internal Medicine; Emergency Provider Emergency Medicine; PCP Internal Medicine; Visit Provider Internal Medicine | DX: R10.9 Unspecified abdominal pain (principal) | CPT/HCPCS: 99232; 99233 ==

== ENCOUNTER 2025-07-21 09:50 | Outpatient (REF) | payer MEDICARE, SELFPAY ==
--- OUTSIDE RECORDS SUMMARY | 2025-07-21 11:16 | XMS_ITS | Encounter Summary ---
Author Organization [facility] Address [address] [place] [address] Care Team Providers Care Cosmetic Counselor Name Role Phone Atif Desai MD Primary Care Provider Encounter Details Date Type Department Care Team (Late st Contact Info) Description 07/07/2025 Lab Requisition [facility] - Main Lab [address] [facility] [place] [address] James England MD [address] [place] [phone] Anemia, unspecified Social History Tobacco Use Types Packs/Day Years Used Date Smoking Tobacco: Every Day Cigarettes 1 55.9 Started: 1972 Passive Smoke Exposure: Never Smokeless Tobacco: Never Alcohol Use Standard Drinks/Week Comments Not Currently [...] for your loved ones. For example, child welfare manager or elderly care for an older adult? [...] on file Sexual Orientation Not on file documented as of this encounter Plan of Treatment Upcoming Encounters Date Type Department Care Team (Late st Contact Info) Description 07/22/2025 1:[address] Scan - [address] [phone] 08/03/2025 1:20 PM EST Appointment Radiology Department - [address] [phone] 08/06/2025 12:00 PM EST Appointment [facility] Endoscopy [address] [place] [phone] Fredis Mei MD [address] [address] 08/11/2025 2:00 PM EST Office Visit Adult Medicine [address] [phone] Atif Desai MD [address] [place] [address] 08/31/2025 11:30 AM EST Office Visit Adult [address] [phone] Atif Desai MD [address] [place] [address] 09/09/2025 11:15 AM EST Appointment Bone Density [address] [phone] 03/21/2026 1:40 PM EDT Consult Gastroenterology - [address] [place] [phone] Suzanna Bolton PA [address] [place] [phone] documented as of this encounter Goals Goal Patient Goal Type Associated Problems Recent Progress Patient-Stated? Author Autogenerat ed Goal Care Plan Autogenerated Problem Danya Nelson documented as of this encounter Visit Diagnoses Diagnosis Anemia, unspecified documented in this encounter Additional Health Concerns Active Problems Noted Date Diagnosed Date Autogenerated Problem 06/21/2025 Infection Onset Date Last Indicated Resolved Time Enteropathogenic E. coli (EPEC) 02/25/2025 Assessment Noted Time PHQ-9 Depression Total Score: 0 05/25/20 25 11:18 AM EDT A fall risk assessment has been complete d for the patient 05/25/2025 11:18 AM EDT documented as of this encounter Care Teams Cosmetic Counselor Relationship Specialty Start Date End Date Atif Desai MD [address] [place] [address] PCP - General Internal Medicine 02/22/25 documented as of this encounter
--- OUTSIDE RECORDS SUMMARY | 2025-07-21 11:16 | XMS_ITS | Encounter Summary ---
Author Organization [facility] Address [address] [place] [address] Care Team Providers Care Equip Maint Eng Name Role Phone Atif Desai MD Primary Care Provider Encounter Details Date Type Department Care Team (Late st Contact Info) Description 07/16/2025 Results Follow-Up Adult Medicine [facility] [address] [place], [place] [phone] Atif Desai MD [address] [place], [place] Social History Tobacco Use Types Packs/Day Years Used Date Smoking Tobacco: Former Cigarettes 1 55.9 S tarted: 1972 Passive Smoke Exposure: Never Smokeless Tobacco: [...] for your loved ones. For example, child nurse or elderly care for an older adult? [...] 1:[address] Scan - [address] [phone] 08/03/2025 1:20 PM EST Appointment Radiology Department - [address] [phone] 08/06/2025 12:[address] [facility] Endoscopy [address] [place] [phone] Fredis Mei MD [address] [place] [address] 08/11/2025 2:00 PM EST Office Visit Adult Medicine [address] [phone] Atif Desai MD [address] [place] [address] 08/31/2025 11:30 AM EST Office Visit Adult Medicine [address] [phone] Atif Desai MD [address] [place] [address] 09/09/2025 11:15 AM EST Appointment Bone [address] [phone] 03/21/2026 1:40 PM EDT Consult Gastroenterology - [address] [place] [phone] Suzanna Bolton PA [address] [place] [phone] documented as of this encounter Goals Goal Patient Goal Type Associated Problems Recent Progress Patient-Stated? Author Autogenerat ed Goal Care Plan Autogenerated Problem No Danya Kang documented as of this encounter Visit Diagnoses Not on filedocumented in this encounter Additional Health Concerns Active Problems Noted Date Diagnosed Date Autogenerated Problem 06/21/2025 Infection Onset Date Last Indicated Resolved Time Enteropathogenic E. coli (EPEC) 02/25/2025 Assessment Noted Time PHQ-9 Depression Total Score: 0 07/14/20 25 2:16 PM EST A fall risk assessment has been complete d for the patient 05/25/2025 11:18 AM EDT documented as of this encounter Care Teams Equip Maint Eng Relationship Specialty Start Date End Date GiselleAtif vernon MD [address] [place] [address] PCP - General Internal Medicine 02/22/25 documented as of this encounter
--- OUTSIDE RECORDS SUMMARY | 2025-07-21 11:16 | XMS_ITS | Encounter Summary ---
Author Organization [facility] Address [address] [place] [address] Care Team Providers Care Watcher Lookout Tower Name Role Phone Atif Desai MD Primary Care Provider Encounter Details Date Type Department Care Team (Late st Contact Info) Description 06/17/2025 Lab Requisition [facility] - Main Lab [address] [facility] [place] [address] James Engladn MD [address] [place] [phone] Anemia, unspecified Social History Tobacco Use Types [...] your loved ones. For example, child care nurse or elderly care for an older [...] 1:[address] Scan - [address] [phone] 08/03/2025 1:20 PM EST Appointment Radiology Department - [address] [phone] 08/06/2025 12:00 PM EST Appointment [facility] Endoscopy [address] [place] [phone] Fredis Mei MD [address] [address] 08/11/2025 2:00 PM EST Office Visit Adult Medicine [address] [phone] Atif Desai MD [address] [place] [address] 08/31/2025 11:30 AM EST Office Visit [address] [phone] Atif Desai MD [address] [place] [address] 09/09/2025 11:15 AM EST Appointment Bone Density - [address] [phone] 03/21/2026 1:40 PM EDT Consult Gastroenterology - [address] [place] [phone] Suzanna Bolton PA [address] [place] [phone] documented as of this encounter Procedures Procedure Name Priority Date/Time Associated Diagnosis Comments COMPLETE BLOOD COUNT Routine 06/17/2025 8:01 AM EDT Anemia, unspecified COMPREHENSIVE METABOLIC PANEL Routine 06/17/2025 8:01 AM EDT Anemia, unspecified documented in this encounter Results * (ABNORMAL) Comprehensive metabolic panel (06/17/2025 8:01 AM EDT) [facility] Sodium 139 133 - 145 mmol/L LAB CHEMISTRY METHOD 06/17/2025 12:27 PM EDT [facility] Potassium 3.3(L) 3.5 - 5.5 mmol/L LAB CHEMISTRY METHOD 06/17/2025 12:27 PM [facility] Chloride 99 96 - 110 mmol/L LAB CHEMISTRY METHOD 06/17/2025 12:27 PM [facility] CO2 37(H) 21 - 32 mmol/L LAB CHEMISTRY METHOD 06/17/2025 12:27 PM [facility] Anion Gap 3 3 - 11 LAB CHEMISTRY METHOD 06/17/2025 12:27 PM [facility] Glucose 105(H) 70 - 100 mg/dL LAB CHEMISTRY METHOD 06/17/2025 12:27 PM [facility] BUN 14 5 - 25 mg/dL LAB CHEMISTRY METHOD 06/17/2025 12:27 PM [facility] Creatinine 0.61 0.50 - 1.10 mg/dL LAB CHEMISTRY METHOD 06/17/2025 12:27 PM [facility] eGFR 96 >=60 mL/min/1. 73m2 LAB CHEMISTRY METHOD 06/17/2025 12:27 PM [facility] Comment:Calculation based on the Chronic Kidney Disease Epidemiology Collaboration (CKD-EPI) equation refit without adjustment for race. BUN/Creatinine Ratio 23.0 LAB CHEMISTRY METHOD 06/17/2025 12:27 PM [facility] Calcium 9.0 8.5 - 10.5 mg/dL LAB CHEMISTRY METHOD 06/17/2025 12:27 PM [facility] AST (SGOT) 9(L) 10 - 42 unit/L LAB CHEMISTRY METHOD 06/17/2025 12:27 PM [facility] ALT (SGPT) 7(L) 10 - 60 unit/L LAB CHEMISTRY METHOD 06/17/2025 12:27 PM [facility] Alkaline Phosphatase 77 42 - 121 unit/L LAB CHEMISTRY METHOD 06/17/2025 12:27 PM [facility] Total Protein 4.8(L) 6.0 - 8.0 g/dL LAB CHEMISTRY METHOD 06/17/2025 12:27 PM [facility] Albumin 2.5(L) 3.2 - 5.0 g/dL LAB CHEMISTRY METHOD 06/17/2025 12:27 PM [facility] Total Bilirubin 1.1 0.0 - 1.4 mg/dL LAB CHEMISTRY METHOD 06/17/2025 12:27 PM T [facility] Blood Venous blood specimen / Unknown Venipuncture / Unknown 06/17/2025 8:01 AM EDT 06/17/2025 10:49 AM EDT James England MD LAB BLOOD ORDERABLES Final Result [facility] [address] [place] [address], * Complete blood count (06/17/2025 8:01 AM EDT) WBC 7.3 4.8 - 10.8 K/mcL LAB HEMETOLOGY METHOD 06/17/2025 11:11 AM [facility] RBC 3.80 3.80 - 4.80 M/mcL LAB HEMETOLOGY METHOD 06/17/2025 11:11 AM [facility] Hemoglobin 12.0 11.5 - 16.0 g/dL LAB HEMETOLOGY METHOD 06/17/2025 11:11 AM [facility] Hematocrit 36.7 35.0 - 47.0 % LAB HEMETOLOGY METHOD 06/17/2025 11:11 AM [facility] MCV 96.1 79.0 - 98.0 FL LAB HEMETOLOGY METHOD 06/17/2025 11:11 AM [facility] MCH 31.4 27.0 - 32.0 pcg LAB HEMETOLOGY METHOD 06/17/2025 11:11 AM EDT [facility] MCHC 32.7 32.0 - 37.0 g/dL LAB HEMETOLOGY METHOD 06/17/2025 11:11 AM EDT [facility] RDW 13.7 11.0 - 15.0 % LAB HEMETOLOGY METHOD 06/17/2025 11:11 AM EDT [facility] Platelets 142 130 - 400 K/mcL LAB HEMETOLOGY METHOD 06/17/2025 11:11 AM EDT [facility] MPV 11.0 7.0 - 11.0 FL LAB HEMETOLOGY METHOD 06/17/2025 11:11 AM EDT [facility] NRBC 0.0 <1.0 % LAB HEMETOLOGY METHOD 06/17/2025 11:11 AM EDT [facility] NRBC Absolute 0.00 <0.10 K/mcL LAB HEMETOLOGY METHOD 06/17/2025 11:11 AM T [facility] Blood Venous blood specimen / Unknown Venipuncture / Unknown 06/17/2025 8:01 AM EDT 06/17/2025 10:49 AM EDT James England MD LAB BLOOD ORDERABLES Final Result [facility] [address] [place] [address], documented in this encounter Visit Diagnoses Diagnosis Anemia, unspecified documented in this encounter Additional Health Concerns Infection Onset Date Last Indicated Resolved Time Enteropathogenic E. coli (EPEC) 02/25/2025 Assessment Noted Time PHQ-9 Depression Total Score: 0 05/25/20 25 11:18 AM EDT A fall risk assessment has been complete d for the patient 05/25/2025 11:18 AM EDT documented as of this encounter Care Teams Watcher Lookout Tower Relationship Specialty Start Date End Date Atif Desai MD [address] [place] [address] PCP - General Internal Medicine 02/22/25 documented as of this encounter
--- OUTSIDE RECORDS SUMMARY | 2025-07-21 11:17 | XMS_ITS | Encounter Summary ---
Author Organization [facility] Address [address] [place] [address] Care Team Providers Care Speech Pathology Supervisor Name Role Phone Atif Desai MD Primary Care Provider Reason for Visit * Reason Onset Date Comments follow up labs 07/16/2025 Encounter Details Date Type Department Care Team ([facility] Contact Info) Description 07/16/2025 Telephone Adult Medicine [facility] [address] [place], [place] [phone] Atif Desai MD [address] [place] [phone] Social History Tobacco Use Types Packs/Day Years [...] for your loved ones. For example, child watch attendant or elderly care for an older adult? [...] on file documented as of this encounter Progress Notes * Windy Duncan RN - 07/20/2025 8:49 AM EST Called to the pt and advised per provider She stated understanding and has been reaching out to urology to schedule * Atif Desai MD - 07/16/2025 8:05 AM EST Please let the patient know that her labs came back essentially normal. Cholesterol is mildly elevated, not significant at her age. Urine shows some blood but no sign of infection. Urine culture is negative. Blood could be due to because of recent ureteral stenting, please advise her to follow-up with urology for further evaluation of her kidney stones. documented in this encounter Plan of Treatment Upcoming Encounters Date Type Department Care Team (Late st Contact Info) Description 07/22/2025 1:[address] Scan - [address] [phone] 08/03/2025 1:20 PM EST Appointment Radiology Department - [address] [phone] 08/06/2025 12:[address] [facility] Endoscopy [address] [place] [address] Fredis Mei MD [address] [place] [address] 08/11/2025 2:00 PM EST Office Visit Adult Medicine [address] [phone] Atif Desai MD [address] [place] [address] 08/31/2025 11:30 AM EST Office Visit Adult Medicine [address] [phone] Atif Desai MD [address] [place] [address] 09/09/2025 11:15 AM EST Appointment Bone Density - [address] [phone] 03/21/2026 1:40 PM EDT Consult Gastroenterology - [address] [place] [address] Suzanna Bolton PA 299 [facility] [address] [place] [address] documented as of this encounter Goals Goal [...] Time PHQ-9 Depression Total Score: 0 07/14/20 2:16 PM EST A fall risk assessment has been complete d for the patient 05/25/2025 11:18 AM EDT documented as of this encounter Care Teams Speech Pathology Supervisor Relationship Specialty Start Date End Date Atif Desai MD [address] [place] [address] PCP - General Internal Medicine 02/22/25 documented as of this encounter
--- OUTSIDE RECORDS SUMMARY | 2025-07-21 11:17 | XMS_ITS ---
Atif Desai MD LAB BLOOD ORDERABLES F inal Result Performing Organization Address City/[facility]/ZIP Co de Phone Number [facility] [address] [place] [address], [place] [phone] * Hepatitis C antibody (07/14/2025 3:23 PM EST) Hepatitis C Antibody Negative Negative 07/14/2025 7:27 PM EST [facility] Blood Venous blood specimen / Unknown Venipuncture / Unknown 07/14/2025 3:23 PM EST 07/14/2025 3:23 PM EST us Atif Desai MD LAB BLOOD ORDERABLES F inal Result Performing Organization Address [facility] Co de Phone Number [facility] [address] [place] [address], [place] [phone] * HIV 1,2 antibody, p24 antigen with reflex to differentiation (07/14/2025 3:23 PM EST) Pathologist [facility] HIV Combo AB/AG Negative Negative 07/14/2025 7:16 PM EST [facility] Blood Venous blood specimen / Unknown Venipuncture / Unknown 07/14/2025 3:23 PM EST 07/14/2025 3:23 PM EST Narrative [facility] - 07/14/2025 7:16 PM EST This assay is a 4th generation assay allowing for earlier detection of HIV infection by detecting the presence of the HIV-1 p24 antigen as well as the traditional antibodies to HIV type 1 (including group O) and type 2. Use of a 4th generation assay is the current CDC recommendation for HIV screening. us Atif Desai MD LAB BLOOD ORDERABLES F inal Result Performing Organization Address City/[facility]/ZIP Co de Phone Number [facility] [address] [place] [address], [place] [phone] * (ABNORMAL) Lipid panel with reflex to direct LDL (07/14/2025 3:23 PM EST) Cholesterol 177 0 - 200 mg/dL 07/14/2025 6:47 PM EST [facility] Triglycerides 80 0 - 150 mg/dL 07/14/2025 6:47 PM EST [facility] HDL 58 >=40 mg/dL 07/14/2025 6:47 PM EST [facility] LDL Calculated 103(H) 0 - 100 mg/dL 07/14/2025 6:47 PM [facility] Comment:Estimated LDL Calcul ated using equation: Total cholesterol - HDL cholesterol - (Triglycerides/5) VLDL Cholesterol Pato 16 mg/dL 07/14/2025 6:47 PM [facility] Non HDL Chol. (LDL+VLDL) 119 <145 mg/dL 07/14/2025 6:47 PM [facility] Chol/HDL Ratio 3.1 0.0 - 4.4 07/14/2025 6:47 PM [facility] Blood Venous blood specimen / Unknown Venipuncture / Unknown 07/14/2025 3:23 PM EST 07/14/2025 3:23 PM EST Atif Desai MD LAB BLOOD ORDERABLES F inal Result [facility] [address] [place] [address], [place] [phone] * (ABNORMAL) CBC auto differential (07/14/2025 3:23 PM EST) Pathologist [facility] WBC 5.4 4.8 - 10.8 K/[facility] LAB HEMETOLOGY METHOD 07/14/2025 4:30 PM EST [facility] RBC 4.10 3.80 - 4.80 M/mcL LAB HEMETOLOGY METHOD 07/14/2025 4:30 PM [facility] Hemoglobin 12.8 11.5 - 16.0 g/dL LAB HEMETOLOGY METHOD 07/14/2025 4:30 PM [facility] Hematocrit 40.1 35.0 - 47.0 % LAB HEMETOLOGY METHOD 07/14/2025 4:30 PM [facility] MCV 98.5(H) 79.0 - 98.0 FL LAB HEMETOLOGY METHOD 07/14/2025 4:30 PM [facility] MCH 31.4 27.0 - 32.0 pcg LAB HEMETOLOGY METHOD 07/14/2025 4:30 PM [facility] MCHC 31.9(L) 32.0 - 37.0 g/dL LAB HEMETOLOGY METHOD 07/14/2025 4:30 PM [facility] RDW 14.6 11.0 - 15.0 % LAB HEMETOLOGY METHOD 07/14/2025 4:30 PM [facility] Platelets 214 130 - 400 K/mcL LAB HEMETOLOGY METHOD 07/14/2025 4:30 PM [facility] MPV 10.3 7.0 - 11.0 FL LAB HEMETOLOGY METHOD 07/14/2025 4:30 PM [facility] NRBC 0.0 <1.0 % LAB HEMETOLOGY METHOD 07/14/2025 4:30 PM [facility] NRBC Absolute 0.00 <0.10 K/mcL LAB HEMETOLOGY METHOD 07/14/2025 4:30 PM [facility] Neutrophils Relative 53.1 % LAB HEMETOLOGY METHOD 07/14/2025 4:30 PM [facility] Lymphocytes Relative 29.3 % LAB HEMETOLOGY METHOD 07/14/2025 4:30 PM [facility] Monocytes Relative 7.4 % LAB HEMETOLOGY METHOD 07/14/2025 4:30 PM EST [facility] Eosinophils Relative 9.4 % LAB HEMETOLOGY METHOD 07/14/2025 4:30 PM [facility] Basophils Relative 0.6 % LAB HEMETOLOGY METHOD 07/14/2025 4:30 PM [facility] Immature Granulocytes Relative 0.2 % LAB HEMETOLOGY METHOD 07/14/2025 4:30 PM [facility] Neutrophils Absolute 2.87 1.50 - 7.00 K/mcL LAB HEMETOLOGY METHOD 07/14/2025 4:30 PM [facility] Lymphocytes Absolute 1.58 1.00 - 5.00 K/mcL LAB HEMETOLOGY METHOD 07/14/2025 4:30 PM [facility] Monocytes Absolute 0.40 0.20 - 1.00 K/mcL LAB HEMETOLOGY METHOD 07/14/2025 4:30 PM [facility] Eosinophils Absolute 0.51(H) 0.00 - 0.50 K/mcL LAB HEMETOLOGY METHOD 07/14/2025 4:30 PM [facility] Basophils Absolute 0.03 0.00 - 0.20 K/mcL LAB HEMETOLOGY METHOD 07/14/2025 4:30 PM [facility] Immature Granulocytes Absolute 0.01 0.00 - 0.03 K/mcL LAB HEMETOLOGY METHOD 07/14/2025 4:30 PM [facility] Blood Venous blood specimen / Unknown Venipuncture / Unknown 07/14/2025 3:23 PM EST 07/14/2025 3:23 PM EST us Atif Desai MD LAB BLOOD ORDERABLES F inal Result [facility] [address] [place] [address], [place] [phone] * Alpha fetoprotein tumor marker (07/14/2025 3:23 PM EST) [facility] AFP 2.5 0.0 - 8.0 ng/mL 07/14/2025 7:11 PM EST [facility] Comment:Results verified by repeat testing Blood Venous blood specimen / Unknown Venipuncture / Unknown 07/14/2025 3:23 PM EST 07/14/2025 3:23 PM EST Narrative [facility] - 07/14/2025 7:11 PM EST [employer] IM Chemiluminescent Immunoassay is used. Results obtained with different assay methods or kits cannot be used interchangeably. Results cannot be interpreted as absolute evidence of the presence or absence of malignant disease. us Atif Desai MD LAB BLOOD ORDERABLES F inal Result Performing Organization Address City/[facility]/ZIP Co de Phone Number [facility] [address] [place] [address], [place] [phone] * Prothrombin time with INR (07/14/2025 3:23 PM EST) [facility] Protime 11.4 10.6 - 13.9 sec LAB COAGULATION METHOD 07/14/2025 4:35 PM EST [facility] INR 0.9 LAB COAGULATION METHOD 07/14/2025 4:35 PM EST [facility] Blood Venous blood specimen / Unknown Venipuncture / Unknown 07/14/2025 3:23 PM EST 07/14/2025 3:23 PM EST us Atif Desai MD LAB BLOOD ORDERABLES F inal Result Performing Organization Address City/[facility]/ZIP Co de Phone Number [facility] [address] [place] [address], [place] [phone] * Prealbumin (07/14/2025 3:23 PM EST) Prealbumin 12 10 - 40 mg/dL 07/14/2025 6:47 PM EST [facility] Blood Venous blood specimen / Unknown Venipuncture / Unknown 07/14/2025 3:23 PM EST 07/14/2025 3:23 PM EST Atif Desai MD LAB BLOOD ORDERABLES F inal Result Performing Organization Address City/[facility]/ZIP Co de Phone Number [facility] [address] [place] [address], [place] [phone] * GGT (07/14/2025 3:23 PM EST) Pathologist [facility] GGT 27 <38 unit/L 07/14/2025 6:47 PM EST [facility] Blood Venous blood specimen / Unknown Venipuncture / Unknown 07/14/2025 3:23 PM EST 07/14/2025 3:23 PM EST us Atif Desai MD LAB BLOOD ORDERABLES F inal Result Performing Organization Address City/[facility]/ZIP Co de Phone Number [facility] [address] [place] [address], [place] [phone] * Comprehensive metabolic panel (07/14/2025 3:23 PM EST) Only the most recent of2 resultswithin the time period is included. Sodium 144 133 - 145 mmol/L 07/14/2025 6:47 PM EST [facility] Potassium 4.7 3.5 - 5.5 mmol/L 07/14/2025 6:47 PM EST [facility] Chloride 105 96 - 110 mmol/L 07/14/2025 6:47 PM EST [facility] CO2 30 21 - 32 mmol/L 07/14/2025 6:47 PM [facility] Anion Gap 9 3 - 11 07/14/2025 6:47 PM [facility] Glucose 83 70 - 100 mg/dL 07/14/2025 6:47 PM [facility] BUN 14 5 - 25 mg/dL 07/14/2025 6:47 PM [facility] Creatinine 0.81 0.50 - 1.10 mg/dL 07/14/2025 6:47 PM [facility] eGFR 78 >=60 mL/min/1. 73m2 07/14/2025 6:47 PM [facility] Comment:Calculation based on the Chronic Kidney Disease Epidemiology Collaboration (CKD-EPI) equation refit without adjustment for race. BUN/Creatinine Ratio 17.3 07/14/2025 6:47 PM [facility] Calcium 9.6 8.5 - 10.5 mg/dL 07/14/2025 6:47 PM [facility] AST (SGOT) 30 10 - 42 unit/L 07/14/2025 6:47 PM [facility] ALT (SGPT) 11 10 - 60 unit/L 07/14/2025 6:47 PM [facility] Alkaline Phosphatase 117 42 - 121 unit/L 07/14/2025 6:47 PM [facility] Total Protein 6.9 6.0 - 8.0 g/dL 07/14/2025 6:47 PM [facility] Albumin 4.1 3.2 - 5.0 g/dL 07/14/2025 6:47 PM [facility] Total Bilirubin 0.7 0.0 - 1.4 mg/dL 07/14/2025 6:47 PM [facility] Blood Venous blood specimen / Unknown Venipuncture / Unknown 07/14/2025 3:23 PM EST 07/14/2025 3:23 PM EST us Atif Desai MD LAB BLOOD ORDERABLES F inal Result [facility] [address] [place] [address], [place] [phone] * (ABNORMAL) Urinalysis with reflex microscopic and culture (07/14/2025 3:15 PM EST) Pathologist [facility] Specific [place] Urine >=1.030 1.003 - 1.030 LAB URINALYSIS - AUTOMATED METHOD 07/14/2025 4:45 PM [facility] pH, Urine 6.5 5.0 - 8.0 pH LAB URINALYSIS - AUTOMATED METHOD 07/14/2025 4:45 PM [facility] Leukocytes, Urine Moderate( A) Negative LAB URINALYSIS - AUTOMATED METHOD 07/14/2025 4:45 PM [facility] Nitrite, Urine Positive( A) Negative LAB URINALYSIS - AUTOMATED METHOD 07/14/2025 4:45 PM [facility] Protein, Urine >=300(A) <=Trace mg/dL LAB URINALYSIS - AUTOMATED METHOD 07/14/2025 4:45 PM [facility] Glucose, Urine 100(A) Negative mg/dL LAB URINALYSIS - AUTOMATED METHOD 07/14/2025 4:45 PM [facility] Ketones, Urine Trace(A) Negative mg/dL LAB URINALYSIS - AUTOMATED METHOD 07/14/2025 4:45 PM [facility] Urobilinogen, Urine 2.0(A) 0.2 - 1.0 mg/dL LAB URINALYSIS - AUTOMATED METHOD 07/14/2025 4:45 PM [facility] Bilirubin, Urine Moderate( A) Negative LAB URINALYSIS - AUTOMATED METHOD 07/14/2025 4:45 PM [facility] Blood, Urine Large(A) Negative LAB URINALYSIS - AUTOMATED METHOD 07/14/2025 4:45 PM [facility] RBC, Urine >100 /HPF 07/14/2025 4:45 PM [facility] WBC, Urine 5 /HPF 07/14/2025 4:45 PM [facility] Squamous Epithelial, Urine 3 /LPF 07/14/2025 4:45 PM [facility] Bacteria, Urine 2+(A) (none) /HPF 07/14/2025 4:45 PM [facility] Urine Urine specimen obtained by clean catch procedure / Unknown Non-blood Collection / Unknown 07/14/2025 3:15 PM EST 07/14/2025 3:15 PM EST us Atif Desai MD LAB URINE ORDERABLES F inal Result Performing Organization Address City/[facility]/ZIP Co de Phone Number [facility] [address] [place] [address], [place] [phone] * Bal urine culture tube (07/14/2025 3:15 PM EST) Pathologist [facility] Extra Tube Hold for add-ons. 07/14/2025 5:01 PM EST [facility] Comment:Auto resulted. Urine Urine specimen obtained by clean catch procedure / Unknown 07/14/2025 3:15 PM EST 07/14/2025 3:15 PM EST us Atif Desai MD LAB URINE ORDERABLES F inal Result [facility] [address] [place] [address], [place] [phone] * Culture urine (07/14/2025 3:15 PM EST) Culture, Urine <10,000 CFU/mL gram positive cocci, insignificant count, no further workup 07/15/2025 10:45 AM [facility] Urine Urine specimen obtained by clean catch procedure / Unknown Non-blood Collection / Unknown 07/14/2025 3:15 PM EST 07/14/2025 4:45 PM EST us Atif Desai MD LAB MICROBIOLOGY - GEN ERAL ORDERABLES Final Result [facility] [address] [place] [address], [place] [phone] * (ABNORMAL) Complete blood count (07/01/2025 8:52 AM EST) Only the most recent of3 resultswithin the time period is included. Pathologist [facility] WBC 6.1 4.8 - 10.8 K/mcL LAB HEMETOLOGY METHOD 07/01/2025 11:32 AM [facility] RBC 3.60(L) 3.80 - 4.80 M/mcL LAB HEMETOLOGY METHOD 07/01/2025 11:32 AM [facility] Hemoglobin 11.3(L) 11.5 - 16.0 g/dL LAB HEMETOLOGY METHOD 07/01/2025 11:32 AM [facility] Hematocrit 34.7(L) 35.0 - 47.0 % LAB HEMETOLOGY METHOD 07/01/2025 11:32 AM [facility] MCV 96.9 79.0 - 98.0 FL LAB HEMETOLOGY METHOD 07/01/2025 11:32 AM [facility] MCH 31.6 27.0 - 32.0 pcg LAB HEMETOLOGY METHOD 07/01/2025 11:32 AM [facility] MCHC 32.6 32.0 - 37.0 g/dL LAB HEMETOLOGY METHOD 07/01/2025 11:32 AM EST [facility] RDW 14.6 11.0 - 15.0 % LAB HEMETOLOGY METHOD 07/01/2025 11:32 AM EST [facility] Platelets 171 130 - 400 K/mcL LAB HEMETOLOGY METHOD 07/01/2025 11:32 AM [facility] MPV 10.8 7.0 - 11.0 FL LAB HEMETOLOGY METHOD 07/01/2025 11:32 AM EST [facility] NRBC 0.0 <1.0 % LAB HEMETOLOGY METHOD 07/01/2025 11:32 AM [facility] NRBC Absolute 0.00 <0.10 K/mcL LAB HEMETOLOGY METHOD 07/01/2025 11:32 AM [facility] Blood Venous blood specimen / Unknown Venipuncture / Unknown 07/01/2025 8:52 AM EST 07/01/2025 11:19 AM EST James England MD LAB BLOOD ORDERABLES Final Result [facility] [address] [place] [address], * (ABNORMAL) Basic metabolic panel (07/01/2025 8:52 AM EST) Only the most recent of2 resultswithin the time period is included. Sodium 139 133 - 145 mmol/L LAB CHEMISTRY METHOD 07/01/2025 12:14 PM [facility] Potassium 3.8 3.5 - 5.5 mmol/L LAB CHEMISTRY METHOD 07/01/2025 12:14 PM [facility] Chloride 104 96 - 110 mmol/L LAB CHEMISTRY METHOD 07/01/2025 12:14 PM [facility] CO2 31 21 - 32 mmol/L LAB CHEMISTRY METHOD 07/01/2025 12:14 PM EST [facility] Anion Gap 4 3 - 11 LAB CHEMISTRY METHOD 07/01/2025 12:14 PM [facility] Glucose 118(H) 70 - 100 mg/dL LAB CHEMISTRY METHOD 07/01/2025 12:14 PM [facility] BUN 17 5 - 25 mg/dL LAB CHEMISTRY METHOD 07/01/2025 12:14 PM [facility] Creatinine 0.54 0.50 - 1.10 mg/dL LAB CHEMISTRY METHOD 07/01/2025 12:14 PM [facility] eGFR 99 >=60 mL/min/1. 73m2 LAB CHEMISTRY METHOD 07/01/2025 12:14 PM [facility] Comment:Calculation based on the Chronic Kidney Disease Epidemiology Collaboration (CKD-EPI) equation refit without adjustment for race. BUN/Creatinine Ratio 31.5 LAB CHEMISTRY METHOD 07/01/2025 12:14 PM [facility] Calcium 8.9 8.5 - 10.5 mg/dL LAB CHEMISTRY METHOD 07/01/2025 12:14 PM [facility] Blood Venous blood specimen / Unknown Venipuncture / Unknown 07/01/2025 8:52 AM EST 07/01/2025 11:20 AM EST James England MD LAB BLOOD ORDERABLES Final Result [facility] [address] [place] [address], * External Xray Report (06/14/2025) Only the most recent of4 resultswithin the time period is included. Anatomical Region Laterality Modality Radiographic Stephanie ging us Provider [facility] XR PROCEDURES Final Result * External CT Report (06/11/2025) Only the most recent of5 resultswithin the time period is included. Anatomical Region Laterality Modality Computed Tomogra phy us Provider [facility] CT PROCEDURES Final Result * External clinical lab (06/09/2025) Provider [facility] BLOOD ORDERABLES Fin al Result from Last 3 Months Additional Health Concerns Active Problems Noted Date Diagnosed Date Autogenerated Problem 06/21/2025 Infection Onset Date Last Indicated Enteropathogenic E. coli (EPEC) 02/25/2025 02/25/2025 Insurance MEDICARE Care Teams Pan Devulcanizer Relationship Specialty Start Date End Date Atif Desai MD [address] [place] [address] PCP - General Internal Medicine 02/22/25
--- OUTSIDE RECORDS SUMMARY | 2025-07-21 11:17 | XMS_ITS | Encounter Summary ---
Author Organization [facility] Address [address] [place] [address] Care Team Providers Care Factory Lay Out Engineer Name Role Phone Atif Desai MD Primary Care Provider Encounter Details Date Type Department Care Team (Late st Contact Info) Description 06/30/2025 Lab Requisition [facility] - Main Lab [address] [facility] [place] [address] James England MD [address] [place] [address] Anemia, unspecified Social History Tobacco Use Types [...] for your loved ones. For example, child protection specialist or elderly care for an older adult? [...] 1:[address] Scan - [address] [phone] 08/03/2025 1:20 PM EST Appointment Radiology Department - [address] [phone] 08/06/2025 12:00 PM EST Appointment [facility] [address] [place] [phone] Fredis Mei MD [address] [address] 08/11/2025 2:00 PM EST Office Visit Adult [address] [phone] Atif Desai MD [address] [place] [address] 08/31/2025 11:30 AM EST Office Visit [address] [phone] Atif Desai MD [address] [place] [address] 09/09/2025 11:15 AM EST Appointment Bone Density - [address] [phone] 03/21/2026 1:40 PM EDT Consult Gastroenterology - [address] [place] [phone] Suzanna Bolton PA [address] [address] documented as of this encounter Goals Goal Patient Goal Type Associated Problems Recent Progress Patient-Stated? Author Autogenerat ed Goal Care Plan Autogenerated Problem No Danya Kang documented as of this encounter Procedures Procedure Name Priority Date/Time Associated Diagnosis Comments COMPLETE BLOOD COUNT Routine 07/01/2025 8:52 AM EST Anemia, unspecified BASIC METABOLIC PANEL Routine 07/01/2025 8:52 AM EST Anemia, unspecified documented in this encounter Results * (ABNORMAL) Basic metabolic panel (07/01/2025 8:52 AM EST) [facility] Sodium 139 133 - 145 mmol/L LAB CHEMISTRY METHOD 07/01/2025 12:14 PM [facility] Potassium 3.8 3.5 - 5.5 mmol/L LAB CHEMISTRY METHOD 07/01/2025 12:14 PM [facility] Chloride 104 96 - 110 mmol/L LAB CHEMISTRY METHOD 07/01/2025 12:14 PM [facility] CO2 31 21 - 32 mmol/L LAB CHEMISTRY METHOD 07/01/2025 12:14 PM [facility] Anion Gap 4 3 - 11 LAB CHEMISTRY METHOD 07/01/2025 12:14 PM [facility] Glucose 118(H) 70 - 100 mg/dL LAB CHEMISTRY METHOD 07/01/2025 12:14 PM [facility] BUN 17 5 - 25 mg/dL LAB CHEMISTRY METHOD 07/01/2025 12:14 PM [facility] Creatinine 0.54 0.50 - 1.10 mg/dL LAB CHEMISTRY METHOD 07/01/2025 12:14 PM [facility] eGFR 99 >=60 mL/min/1. 73m2 LAB CHEMISTRY METHOD 07/01/2025 12:14 PM [facility] Comment:Calculation based on the Chronic Kidney Disease Epidemiology Collaboration (CKD-EPI) equation refit without adjustment for race. BUN/Creatinine Ratio 31.5 LAB CHEMISTRY METHOD 07/01/2025 12:14 PM [facility] Calcium 8.9 8.5 - 10.5 mg/dL LAB CHEMISTRY METHOD 07/01/2025 12:14 PM [facility] Blood Venous blood specimen / Unknown Venipuncture / Unknown 07/01/2025 8:52 AM EST 07/01/2025 11:20 AM EST James England MD LAB BLOOD ORDERABLES Final Result [facility] [address] [place] [address], * (ABNORMAL) Complete blood count (07/01/2025 8:52 AM EST) [facility] WBC 6.1 4.8 - 10.8 K/mcL LAB HEMETOLOGY METHOD 07/01/2025 11:32 AM [facility] RBC 3.60(L) 3.80 - 4.80 M/mcL LAB HEMETOLOGY METHOD 07/01/2025 11:32 AM [facility] Hemoglobin 11.3(L) 11.5 - 16.0 g/dL LAB HEMETOLOGY METHOD 07/01/2025 11:32 AM [facility] Hematocrit 34.7(L) 35.0 - 47.0 % LAB HEMETOLOGY METHOD 07/01/2025 11:32 AM [facility] MCV 96.9 79.0 - 98.0 FL LAB HEMETOLOGY METHOD 07/01/2025 11:32 AM [facility] MCH 31.6 27.0 - 32.0 pcg LAB HEMETOLOGY METHOD 07/01/2025 11:32 AM [facility] MCHC 32.6 32.0 - 37.0 g/dL LAB HEMETOLOGY METHOD 07/01/2025 11:32 AM [facility] RDW 14.6 11.0 - 15.0 % LAB HEMETOLOGY METHOD 07/01/2025 11:32 AM [facility] Platelets 171 130 - 400 K/mcL LAB HEMETOLOGY METHOD 07/01/2025 11:32 AM [facility] MPV 10.8 7.0 - 11.0 FL LAB HEMETOLOGY METHOD 07/01/2025 11:32 AM [facility] NRBC 0.0 <1.0 % LAB HEMETOLOGY METHOD 07/01/2025 11:32 AM [facility] NRBC Absolute 0.00 <0.10 K/mcL LAB HEMETOLOGY METHOD 07/01/2025 11:32 AM EST [facility] Blood Venous blood specimen / Unknown Venipuncture / Unknown 07/01/2025 8:52 AM EST 07/01/2025 11:19 AM EST us James England MD LAB BLOOD ORDERABLES Final Result [facility] [address] [place] [address], documented in this encounter Visit Diagnoses Diagnosis Anemia, unspecified documented in this encounter Additional Health Concerns Active Problems Noted Date Diagnosed Date Autogenerated Problem 06/21/2025 Infection Onset Date Last Indicated Resolved Time Enteropathogenic E. coli (EPEC) 02/25/2025 Assessment Noted Time PHQ-9 Depression Total Score: 0 05/25/20 11:18 AM EDT A fall risk assessment has been complete d for the patient 05/25/2025 11:18 AM EDT documented as of this encounter Care Teams Factory Lay Out Engineer Relationship Specialty Start Date End Date Atif Desai MD [address] [place] [address] PCP - General Internal Medicine 02/22/25 documented as of this encounter
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
--- OUTSIDE RECORDS SUMMARY | 2025-07-21 11:17 | XMS_ITS | Encounter Summary ---
Author Organization [facility] Address [address] [place] [address] Care Team Providers Care Rotary Adjuster Name Role Phone Atif Desai MD Primary Care Provider Encounter Details Date Type Department Care Team (Late st Contact Info) Description 06/23/2025 Lab Requisition [facility] - Main Lab [address] [facility] [place] [address] James England MD [address] [place] [address] Anemia, unspecified Social History Tobacco Use Types [...] care for your loved ones. For example, early childhood education coordinator or elderly care for an older [...] 1:[address] Scan - [address] [phone] 08/03/2025 1:20 PM EST Appointment Radiology Department - [address] [address] 08/06/2025 12:00 PM EST Appointment [facility] Endoscopy [address] [place] [phone] Fredis Mei MD [address] [address] 08/11/2025 2:00 PM EST Office Visit Adult [address] [phone] Atif Desai MD [address] [place] [address] 08/31/2025 11:30 AM EST Office Visit [address] [phone] Atif Desai MD [address] [place] [address] 09/09/2025 11:15 AM EST Appointment Bone Density - [address] [phone] 03/21/2026 1:40 PM EDT Consult Gastroenterology - [address] [place] [phone] Suzanna Bolton PA [address] [address] documented as of this encounter Goals Goal Patient Goal Type Associated Problems Recent Progress Patient-Stated? Author Autogenerat ed Goal Care Plan Autogenerated Problem No Danya Kang documented as of this encounter Procedures Procedure Name Priority Date/Time Associated Diagnosis Comments COMPLETE BLOOD COUNT Routine 06/24/2025 8:22 AM EST Anemia, unspecified BASIC METABOLIC PANEL Routine 06/24/2025 8:22 AM EST Anemia, unspecified documented in this encounter Results * Basic metabolic panel (06/24/2025 8:22 AM EST) [facility] Sodium 140 133 - 145 mmol/L LAB CHEMISTRY METHOD 06/24/2025 12:15 PM EST [facility] Potassium 4.0 3.5 - 5.5 mmol/L LAB CHEMISTRY METHOD 06/24/2025 12:15 PM [facility] Chloride 105 96 - 110 mmol/L LAB CHEMISTRY METHOD 06/24/2025 12:15 PM [facility] CO2 28 21 - 32 mmol/L LAB CHEMISTRY METHOD 06/24/2025 12:15 PM [facility] Anion Gap 7 3 - 11 LAB CHEMISTRY METHOD 06/24/2025 12:15 PM [facility] Glucose 76 70 - 100 mg/dL LAB CHEMISTRY METHOD 06/24/2025 12:15 PM [facility] BUN 10 5 - 25 mg/dL LAB CHEMISTRY METHOD 06/24/2025 12:15 PM [facility] Creatinine 0.67 0.50 - 1.10 mg/dL LAB CHEMISTRY METHOD 06/24/2025 12:15 PM [facility] eGFR 94 >=60 mL/min/1. 73m2 LAB CHEMISTRY METHOD 06/24/2025 12:15 PM [facility] Comment:Calculation based on the Chronic Kidney Disease Epidemiology Collaboration (CKD-EPI) equation refit without adjustment for race. BUN/Creatinine Ratio 14.9 LAB CHEMISTRY METHOD 06/24/2025 12:15 PM [facility] Calcium 8.8 8.5 - 10.5 mg/dL LAB CHEMISTRY METHOD 06/24/2025 12:15 PM [facility] Blood Venous blood specimen / Unknown Venipuncture / Unknown 06/24/2025 8:22 AM EST 06/24/2025 10:12 AM EST James England MD LAB BLOOD ORDERABLES Final Result [facility] [address] [place] [address], * (ABNORMAL) Complete blood count (06/24/2025 8:22 AM EST) [facility] WBC 6.8 4.8 - 10.8 K/mcL LAB HEMETOLOGY METHOD 06/24/2025 11:20 AM [facility] RBC 3.50(L) 3.80 - 4.80 M/mcL LAB HEMETOLOGY METHOD 06/24/2025 11:20 AM [facility] Hemoglobin 10.7(L) 11.5 - 16.0 g/dL LAB HEMETOLOGY METHOD 06/24/2025 11:20 AM [facility] Hematocrit 33.4(L) 35.0 - 47.0 % LAB HEMETOLOGY METHOD 06/24/2025 11:20 AM [facility] MCV 96.0 79.0 - 98.0 FL LAB HEMETOLOGY METHOD 06/24/2025 11:20 AM [facility] MCH 30.7 27.0 - 32.0 pcg LAB HEMETOLOGY METHOD 06/24/2025 11:20 AM [facility] MCHC 32.0 32.0 - 37.0 g/dL LAB HEMETOLOGY METHOD 06/24/2025 11:20 AM [facility] RDW 14.7 11.0 - 15.0 % LAB HEMETOLOGY METHOD 06/24/2025 11:20 AM [facility] Platelets 182 130 - 400 K/mcL LAB HEMETOLOGY METHOD 06/24/2025 11:20 AM [facility] MPV 10.6 7.0 - 11.0 FL LAB HEMETOLOGY METHOD 06/24/2025 11:20 AM [facility] NRBC 0.0 <1.0 % LAB HEMETOLOGY METHOD 06/24/2025 11:20 AM [facility] NRBC Absolute 0.00 <0.10 K/mcL LAB HEMETOLOGY METHOD 06/24/2025 11:20 AM EST [facility] Blood Venous blood specimen / Unknown Venipuncture / Unknown 06/24/2025 8:22 AM EST 06/24/2025 10:12 AM EST us James England MD LAB BLOOD ORDERABLES Final Result [facility] [address] [place] [address], documented in this encounter Visit Diagnoses Diagnosis [...] documented as of this encounter Care Teams Rotary Adjuster Relationship Specialty Start Date End Date Atif Desai MD [address] [place] [address] PCP - General Internal Medicine 02/22/25 documented as of this encounter
== END 2025-07-21 09:51 | disposition home or self-care (01) ==
LOC: HO.LAB 09:50
PROVIDERS: PCP Internal Medicine; Visit Provider Urology
DX: N20.0 Calculus of kidney (principal); N39.0 Urinary tract infection, site not specified
CPT/HCPCS: 81003; 87086; 87088; 87186; 99212

== ENCOUNTER 2025-07-21 09:50 | Outpatient (AMB) | payer MEDICARE, SELFPAY ==
--- NOTE | 2025-07-21 09:51 | A.OFFVIS_ITS ---
Intake Visit Reasons: H&P ESWL Intake Note: Reason for Visit: H&P ESWL Urology Meds: None Blood Thinners: None Labs: BUN: 14 Creatinine: 0.64 (06/15/2025) Imaging: Abdomen/Pelvis 06/11/2025 Last PVR: None Patient reports that she is not having any flank pain but does report blood in the urine. Set Up Operator Required: No Accompanied by: Self / Same As Patient Allergies codeine (CODEINE) Allergy (Unknown, Verified 07/21/25 09:54) UNKNOWN nitroglycerin (NITROGLYCERIN) Allergy (Unknown, Verified 07/21/25 09:54) TACHYCARDIA HPI Comments Details: Sweta is a pleasant female. She is a patient of . She is seen for the following urologic conditions - nephrolithiasis Initial presentation to emergency room with nephrolithiasis Plan for ESWL and stent removal Start antibiotics for hematuria - can not swallow will use ciprofloxacin which can be crushed Chart reviewed. Platelet count 100. Alcoholic thrombocytopenia. Will need platelet transfusion prior to ESWL Nephrolithiasis Presentation through emergency room late May Left proximal ureteric 3 mm stone Stent placed [facility] Medical History (Updated 07/21/25 @ 10:18 by Roberto Noland MD) COPD (chronic obstructive pulmonary disease) Lung mass Collapsed lung UTI (urinary tract infection) Kidney stones Surgical History Hx of tonsillectomy Social History Household Members: Spouse Housing: House Do you presently have visiting nurse or other home services: No Patient Tobacco Use Status: Current everyday Tobacco user Tobacco use type: Cigarette Cigarette Packs Per Day: 10 Cigarettes Per Day: 10 Advance Directives Date on File: 06/11/25 service: No Results AMB Urinalysis, Automated 2 UA Leukoctes 500 Abbi/uL Last Edit by MALLORIE Singleton on 07/21/25 10:02 UA Nitrite Positive Last Edit by MALLORIE Singleton on 07/21/25 10:02 UA Urobilinogen 2 mg/dL Last Edit by MALLORIE Singleton on 07/21/25 10:02 UA Protein 300 mg/dL Last Edit by India Knowles TRACEEA on 07/21/25 10:02 UA pH 5.0 Last Edit by India Knowles, RMA on 07/21/25 10:02 UA Blood 200 Bob/uL Last Edit by India Knowles, RMA on 07/21/25 10:02 UA Specific [place] 1.025 Last Edit by India Knowles, RMA on 07/21/25 10: 02 UA Ketone Positive Last Edit by India Knowles, RMA on 07/21/25 10:02 UA Bilirubin 2 mg/dL Last Edit by India Knowles, RMA on 07/21/25 10:02 UA Glucose 100 mg/dL Last Edit by India Knowles, A on 07/21/25 10:02 Assessment & Plan Assessment & Plan (1) Kidney stones: Code(s): N20.0 - Calculus of kidney Category: Medical Plan Extracorporeal Shock Wave Lithotripsy We discussed the nature of the decision and reasonable alternatives for performing the above surgery. Interventions include chemical dissolution, ESWL, ureteroscopy with laser lithotripsy and stent placement, PCNL. Options such as medical therapy were discussed. The relative uncertainties and benefits related to each alternate procedure were adequately discussed. General surgical risks including, but not limited to, pain, bleeding, infection, myocardial infarction, pulmonary embolus, deep vein thrombosis and cerebrovascular accident which may result in further hospitalization were discussed. Full disclosure of the procedure as well as all major risks, benefits and complications were discussed including but not limited to risks of bleeding, injury to the kidney with hematoma or jer-hematoma, failure to fragments stone, potential for ureteric obstruction from stone passage and need for secondary procedures. There is a small long-term risk of hypertension and a question stephen of diabetes. Success rate of fragmentation and passage is approximately 70- 75%. This is compared to the risks and benefits for ureteroscopy which has a higher success rate but is a more invasive procedure. The success rate of the procedure was discussed. Success of the procedure in the short-term does not necessarily guarantee that long-term success will be maintained. Suitable follow up will need to be maintained. The patient showed understanding of the discussion as well as the typical recovery time, and the outpatient nature of this procedure. Opportunity was given for questions. Repea t-back protocol used to confirm understanding. They wish to proceed with left ESWL Orders: Orders Urine Culture Today N39.0 - Urinary tract infection, site not specified AMB Urinalysis Automated Today Z13.9 - Encounter for screening, unspecified Patient Instructions: This note is constructed using voice recognition software. While every effort has been made to ensure accuracy sagger filler errors may have been included. Imaging studies, laboratory and physical exam results were discussed and reviewed in detail. No major barriers to patient understanding were identified. An opportunity to ask questions regarding the treatment plan was provided. All questions were answered. The patient expressed understanding and agreement with the above treatment plan. The patient is aware they should contact our office by phone for worsening of their current condition or the appearance of new urologic symptoms. Compliance is encouraged with any medications and followup testing that is ordered. It is a privilege to participate in the urologic care of your patient. If you have any questions or concerns regarding treatment for the above conditions, or other urologic issues, please do not hesitate to contact me. The office telephone contact is [phone]. Sincerely, Dr Roberto Noland MD, [facility] - Urology Compassionate Specialist Care for the Genitourinary System Coding Level of Care Code Est Pt Level 4 (74281) Complex visit Add On G2211 Diagnoses Kidney stones N20.0
== END 2025-07-21 10:15 | disposition home or self-care (01) ==
LOC: HO.HUSH 09:50
PROVIDERS: PCP Internal Medicine; Visit Provider Urology
DX: Z13.9 Encounter for screening, unspecified (principal); N20.0 Calculus of kidney
CPT/HCPCS: 99214; G2211